=== PATIENT | male | born 1990 | race African-American/Black ===

== ENCOUNTER 2020-07-21 15:58 | Emergency (ER) | payer OTHER, SELFPAY ==
[2020-07-21 16:40] VITALS: BP 139/78; PULSE 78; RESP 18; TEMP 36.8; O2SAT 98; BMI 20.3
[2020-07-21] MEDS: Fluorescein Sodium STRIP 1 STRIP EYE-BOTH (17:27)
[2020-07-21] MEDS: Tetracaine HCl/PF 0.5% Oph Sol 4 ML DROPS 1 DROP EYE-BOTH (17:27)
[2020-07-21 18:33] VITALS: BP 125/84; PULSE 69; RESP 16; TEMP 36.4; O2SAT 98
--- NOTE | 2020-07-21 18:40 | ED.EYEPROB ---
HPI - Eye Problem General Chief complaint: Eye Problems Stated complaint: eye swelling Time Seen by Provider: 07/21/20 17:11 Source: patient Mode of arrival: ambulatory Limitations: no limitations History of Present Illness HPI Narrative: left eye irritation, pain x4 days. History of corneal abrasion and feels similar. Wears contacts MD chief complaint: eye pain and eye redness Onset (ago): day(s) Onset description: gradual Duration: constant Location: left eye Eye Symptoms: redness and pain Mechanism: none Associated symptoms: none Treatments Prior to Arrival: none Related Data Previous Rx's Medication Instructions Recorded erythromycin 1 applic OPHTHALMIC-LEFT QID 7 07/21/20 Days g Allergies Allergy/AdvReac Type Severity Reaction Status Date / Time No Known Allergies Allergy Unverified 06/19/20 19:12 [No Known Allergies*] Review of Systems Review of Systems: Yes all other systems are reviewed and are negative Constitutional: Constitutional: Reports no additional constitutional complaints, Denies body ache(s), Denies chills, Denies fever(s), Denies headache(s) and Denies weakness Eyes: Eyes: Reports no additional eye complaints, Denies change in vision, Reports irritation and Reports eye pain ENT: Reports system reviewed and no additional complaints, except as documented, Denies dizziness, Denies headache(s), Denies nasal congestion, Denies nasal discharge and Denies neck pain Cardiovascular: Cardiovascular: Reports no additional cardiovascular complaints, Denies chest pain, Denies leg edema and Denies dyspnea Respiratory: Respiratory: Reports no additional respiratory complaints, Denies cough and Denies dyspnea Gastrointestinal: Gastrointestinal: Reports no additional gastrointestinal complaints, Denies abdominal pain, Denies diarrhea, Denies nausea and Denies vomiting Genitourinary: Genitourinary: Denies urinary incontinence Musculoskeletal: Musculoskeletal: Reports no additional musculoskeletal complaints, Denies back pain, Denies arthralgias, Denies joint swelling, Denies neck pain, Denies numbness and Denies tingling Integumentary/Breasts: Skin/Breast: Reports system reviewed and no additional complaints, except as docu and Denies rash Neurologic: Reports system reviewed and no additional complaints, except as documented, Denies Abnormal speech present, Denies dizziness, Denies headache(s), Denies numbness, Denies tingling and Denies weakness [facility] Past Medical History Attestation statement: The following information was validated with the patient. Source: obtained from family and nursing notes reviewed Medical History No known health problems Social History Social History Advance Directives: No Advance Directives Information Provided: No Physical Exam Vital Signs: Vital Signs: Vital Signs Temp Pulse Resp BP Pulse Ox 07/21/20 18:33 97.5 F 69 16 125/84 98 07/21/20 16:40 98.2 F 78 18 139/78 98 Body Mass Index 20.3 Const: General: cooperative, healthy appearing, comfortable and no acute distress Orientation/consciousness: patient oriented x3 Limitations: no limitations HENMT: Head: Yes normal to inspection Ears: hearing grossly normal bilaterally General nose exam: Normal external nose present Face and sinus: Yes normal facial exam Mouth: Normal oral and palatal mucosa present Throat: Yes posterior oropharynx normal Eyes: General: appearance normal, both eyes and all related structures Visual Myers: normal visual myers by confrontation Alignment and Position: alignment normal Periorbital: periorbital findings normal Eyelids: Yes eyelids normal Conjunctivae: conjunctival abnormal ( injection) left Corneas: fluorescein used ( abrasion noted at the 02:00 o'clock souleymane over the cornea is small/circular) Pupils: Equal, round and reactive pupils present EOM: EOMs intact bilaterally Direct Ophthalmoscopy: normal light reflex and no photophobia Neck: Neck: Yes normal visual inspection Chest: Chest palpation & inspection: normal inspection of the chest Resp: Effort & Inspection: normal respiratory effort Auscultation: clear to auscultation bilaterally Cardio: Rate: regular rate Rhythm: regular rhythm Peripheral pulses: Peripheral pulses 2+ throughout GI: Inspection: Yes normal to inspection Palpation (GI): Soft to palpation and nontender Auscultation: normal bowel sounds Back/Spine/Pelvis: Thoracic/Lumbar Spine: thoracic and lumbar spine normal to inspection Skin: General skin exam: no rashes or lesions noted Neuro: General: patient oriented x3, no focal motor deficits and normal sensation to monofilament Cranial nerves: Yes Equal, round and reactive pupils present Cognition (Neuro): normal cognition Speech: No Abnormal speech present Gait exam (Neuro): Normal gait present Motor exam (neuro): 5/5 motor strength present throughout Extrem: General: Yes normal to inspection Course Course Course Narrative: exam consistent with corneal abrasion. Reviewed worrisome signs and symptoms of when to return to the emergency department. Comfortable discharge home. Discharge Plan Discharge Clinical Impression: Corneal abrasion Patient Disposition: Home, Self-Care Instructions: Corneal Abrasion (ED) Additional Instructions: cool compresses to the eye no contacts for at least 7 days call ophthalmology for a follow-up appointment as discussed Prescriptions: New erythromycin 5 mg/gram (0.5 %) ointment 1 applic ophthalmic-Left QID 7 Days RF: 0 Referrals: Kulwinder Rose [Physician] - 2 days Interventions: ED Discharge Assessment Last Done: 07/21/20 18:37 Discharge Date/Time: 07/21/20 18:38
== END 2020-07-21 18:38 | disposition home or self-care (01) ==
PROVIDERS: Emergency Provider Emergency Medicine
DX: S05.02XA Injury of conjunctiva and corneal abrasion without foreign body, left eye, initial encounter (principal); H57.12 Ocular pain, left eye; X58.XXXA Exposure to other specified factors, initial encounter; Y93.9 Activity, unspecified; Y92.9 Unspecified place or not applicable; Y99.9 Unspecified external cause status
CPT/HCPCS: 99283

== ENCOUNTER 2020-09-30 10:01 | Emergency (ER) | payer OTHER, SELFPAY ==
--- NOTE | 2020-09-30 | ECG_ITS ---
Test Reason : CHEST PAIN Blood Pressure : / mmHG Vent. Rate : 075 BPM Atrial Rate : 075 BPM P-R Int : 112 ms QRS Dur : 076 ms QT Int : 356 ms P-R-T Axes : 026 083 031 degrees QTc Int : 397 ms Normal sinus rhythm Normal ECG When compared with ECG of 29-NOV-2019 09:03, No significant change was found Referred By: Generic ED Physician Electronically Signed By:ANJEL EMERY
--- NOTE | 2020-09-30 | XR_ITS ---
EXAMINATION: XR CHEST CLINICAL INFORMATION: Chest pain. COMPARISON: None TECHNIQUE: 2 views of the chest were obtained. FINDINGS: No significant abnormality is noted involving the heart, lungs, mediastinum, bony thorax or soft tissues. XR/XR chest 2V IMPRESSION: No acute cardiopulmonary process.
[2020-09-30 10:23] VITALS: BP 145/81; PULSE 90; RESP 16; TEMP 37.2; O2SAT 98; BMI 21.1
[2020-09-30 12:03] LABS: MANUAL DIFF FLAG NO
[2020-09-30 12:05] LABS: Basophils Percent Auto 0.2 % (0-2); Eosinophils Absolute Auto 0.2 X10*3/uL (0.0-0.4); Eosinophils Percent Auto 1.8 % (0-4); Hematocrit 50.8 % (42-52); Hemoglobin 16.6 g/dl (14.0-18.0); Imm Gran Abs Auto 0.02 X10*3/uL (0.00-0.03); Imm Gran Pct Auto 0.2 % (0.0-0.4); Lymphocytes Absolute Auto 1.6 X10*3/uL (1.2-4.9); Lymphocytes Percent Auto 17.4 % (20-40); Mean Corpuscular HGB Conc 32.7 g/dl (31.0-36.0); Mean Corpuscular Hemoglobin 32.8 pg (27.0-33.0); Mean Corpuscular Volume 100.4 fL (80-98); Monocytes Absolute Auto 0.8 X10*3/uL (0.1-1.2); Neutrophils Absolute Auto 6.5 X10*3/uL (2.0-8.3); Neutrophils Percent Auto 71.4 % (45-73); Platelet Count 224 X10*3/uL (160-400); Red Blood Count 5.06 X10*6/uL (4.60-5.80); Red Cell Distribution Width 11.9 % (11.0-16.0); White Blood Count 9.1 X10*3/uL (4.8-10.8)
[2020-09-30 12:34] LABS: Anion Gap 10 (12-20); Blood Urea Nitrogen 14 mg/dL (9-16); Calcium 9.6 mg/dL (8.4-10.2); Carbon Dioxide 28 mmol/L (22-29); Chloride 105 mmol/L (96-108); Creatinine Clr Calc Pharmacy 126.4; Estimated Glomerular Filt Rate > 60; Glucose Random 82 mg/dL (60-115); Potassium 4.4 mmol/l (3.3-5.1); Sodium 139 mmol/L (135-145)
[2020-09-30 12:43] LABS: Troponin-I High Sensitivity < 3.5 ng/L (<3.5-35.0)
--- NOTE | 2020-09-30 17:36 | ED_ITS ---
HPI - Chest Pain General Chief Complaint: Chest Pain Stated Complaint: chest pain Time Seen by Provider: 09/30/20 17:36 History of Present Illness HPI narrative: Patient complains of symptoms which started 8 hours ago when he was driving to work he felt tingling in both arms he felt palpitations he felt slight shortness of breath he felt a heavy feeling in his chest but never had chest pain, the symptoms resolve but they have been coming back intermittently They are not related to exertion there is no nausea no vomiting no diaphoresis At this moment in time he is asymptomatic Related Data Previous Rx's Medication Instructions Recorded erythromycin 1 applic OPHTHALMIC-LEFT QID 7 07/21/20 Days g lorazepam [Ativan] 1 mg PO TID PRN #10 tab 09/30/20 Allergies Allergy/AdvReac Type Severity Reaction Status Date / Time No Known Allergies Allergy Unverified 06/19/20 19:12 [No Known Allergies*] Review of Systems Review of Systems: Positive for palpitations, feeling of chest heaviness, tingling in fingertips, feeling anxious negatives are no fever no chills no dizziness no cough no shortness of breath now no chest pain now, no abdominal pain no nausea no vomiting no sweating, symptoms are not related to exertion, no calf pain or leg swelling, no rash, no dizziness no confusion [facility] Past Medical History Attestation statement: The following information was validated with the patient. [facility] Narrative: Patient has had prior episodes of hyperventilation and anxiety attacks similar to today, denies drugs or alk Medical History (Updated 09/30/20 @ 17:49 by BASIA Chatterjee) Anxiety Social History Social History Advance Directives: No Advance Directives Information Provided: Yes Physical Exam Vital Signs: Vital Signs: Last Vital Signs Temp 98.9 F 09/30/20 10:23 Pulse 68 09/30/20 17:55 Resp 18 09/30/20 17:55 BP 122/80 09/30/20 17:55 Pulse Ox 98 09/30/20 17:55 Body Mass Index 21.1 General appearance no acute distress, comfortable relaxed and cooperative The head is normocephalic atraumatic The neck is supple The chest is clear to auscultation bilaterally, no chest wall tenderness, full symmetric equal breath sounds The heart rate and rhythm regular no murmur The abdomen is soft nontender Extremities full range of motion x4 without calf swelling or leg swelling or calf tenderness Neuro no focal deficit, patient is interacting appropriately, balance is normal cranial nerves 2-12 intact as tested and cerebellar is normal Course Course Course Narrative: EKG was normal a troponin for the brief episode of chest heaviness which happened 7 or 8 hours ago when symptoms 1st started was normal, other lab work up was nondiagnostic, chest x-ray was normal and at this time the patient is asymptomatic Discussion with patient about this likely being a an anxiety attack and he was given a prescription for Ativan and discharged MDM - Chest Pain Lab Data Attestation: I reviewed the patient's lab results. Result diagrams: 09/30/20 11:54 09/30/20 11:54 Labs: Lab Results 09/30/20 09/30/20 09/30/20 Range/Units 11:54 11:54 11:54 WBC 9.1 (4.8-10.8) X10*3/uL RBC 5.06 (4.60-5.80) X10*6/uL Hgb 16.6 (14.0-18.0) g/dl Hct 50.8 (42-52) % MCV 100.4 H (80-98) fL MCH 32.8 (27.0-33.0) pg MCHC 32.7 (31.0-36.0) g/dl RDW 11.9 (11.0-16.0) % Plt Count 224 (160-400) X10*3/uL MPV 9.0 L (9.4-12.4) fL Immature Gran % (Auto) 0.2 (0.0-0.4) % Neut % (Auto) 71.4 (45-73) % Lymph % (Auto) 17.4 L (20-40) % [place] % (Auto) 9.0 (2-11) % Eos % (Auto) 1.8 (0-4) % Baso % (Auto) 0.2 (0-2) % Lymph # (Auto) 1.6 (1.2-4.9) X10*3/uL [place] # (Auto) 0.8 (0.1-1.2) X10*3/uL Eos # (Auto) 0.2 (0.0-0.4) X10*3/uL Baso # (Auto) 0.0 (0.0-0.2) X10*3/uL Abs Immat Gran (auto) 0.02 (0.00-0.03) X10*3/uL Absolute Neuts (auto) 6.5 (2.0-8.3) X10*3/uL Absolute Nucleated RBC 0.000 (0.0-0.012) X10*3/uL Nucleated RBC % (auto) 0.0 (0.0-0.2) /100WBC Hold Blue Top SEE NOTE Sodium 139 (135-145) mmol/L Potassium 4.4 (3.3-5.1) mmol/l Chloride 105 (96-108) mmol/L Carbon Dioxide 28 (22-29) mmol/L Anion Gap 10 L (12-20) BUN 14 (9-16) mg/dL Creatinine 0.74 (0.5-1.4) mg/dL Estim Creat Clear Calc 126.4 Estimated GFR > 60 Random Glucose 82 (60-115) mg/dL Calcium 9.6 (8.4-10.2) mg/dL Troponin I High Sens (<3.5-35.0) ng/L 09/30/20 Range/Units 11:54 WBC (4.8-10.8) X10*3/uL RBC (4.60-5.80) X10*6/uL Hgb (14.0-18.0) g/dl Hct (42-52) % MCV (80-98) fL MCH (27.0-33.0) pg MCHC (31.0-36.0) g/dl RDW (11.0-16.0) % Plt Count (160-400) X10*3/uL MPV (9.4-12.4) fL Immature Gran % (Auto) (0.0-0.4) % Neut % (Auto) (45-73) % Lymph % (Auto) (20-40) % [place] % (Auto) (2-11) % Eos % (Auto) (0-4) % Baso % (Auto) (0-2) % Lymph # (Auto) (1.2-4.9) X10*3/uL [place] # (Auto) (0.1-1.2) X10*3/uL Eos # (Auto) (0.0-0.4) X10*3/uL Baso # (Auto) (0.0-0.2) X10*3/uL Abs Immat Gran (auto) (0.00-0.03) X10*3/uL Absolute Neuts (auto) (2.0-8.3) X10*3/uL Absolute Nucleated RBC (0.0-0.012) X10*3/uL Nucleated RBC % (auto) (0.0-0.2) /100WBC Hold Blue Top Sodium (135-145) mmol/L Potassium (3.3-5.1) mmol/l Chloride (96-108) mmol/L Carbon Dioxide (22-29) mmol/L Anion Gap (12-20) BUN (9-16) mg/dL Creatinine (0.5-1.4) mg/dL Estim Creat Clear Calc Estimated GFR Random Glucose (60-115) mg/dL Calcium (8.4-10.2) mg/dL Troponin I High Sens < 3.5 (<3.5-35.0) ng/L Discharge Plan Discharge Clinical Impression: Anxiety Patient Disposition: Home, Self-Care Additional Instructions: Our testing which included EKG, blood test for the heart, electrolytes blood count and a chest x-ray did not reveal any dangerous or emergent condition Your vital signs and physical exam did not reveal any dangerous condition your symptoms are most consistent with anxiety so we are writing for Ativan which often helps if having an acute anxiety attack Follow with primary doctor Return return to ER any time any worse condition or any concerns Prescriptions: New lorazepam [Ativan] 1 mg tablet 1 mg PO TID PRN (Reason: anxiety) Qty: 10 RF: 0 No Action erythromycin 5 mg/gram (0.5 %) ointment 1 applic ophthalmic-Left QID 7 Days RF: 0 Stand Alone Forms: Work/School Release Discharge Date/Time: 09/30/20 18:14
[2020-09-30 17:55] VITALS: BP 122/80; PULSE 68; RESP 18; O2SAT 98
--- NOTE | 2020-09-30 17:55 | PC.NURSE ---
Patient brought in from waiting room. Reports minimal pain of 3/10, does report some anxiety. Updated on normal EKG and labs. Bill PA at bedside to evaluate. Respirations regular and even. Skin PWD. Awaiting further orders.
== END 2020-09-30 18:14 | disposition home or self-care (01) ==
PROVIDERS: Emergency Provider Emergency Medicine
DX: R07.9 Chest pain, unspecified (principal); F41.1 Generalized anxiety disorder; F43.0 Acute stress reaction; Z79.899 Other long term (current) drug therapy
CPT/HCPCS: 36415; 71046; 80048; 84484; 85025; 93005; 99283

== ENCOUNTER 2021-03-25 07:14 | Inpatient (IN) | payer OTHER, SELFPAY ==
[2021-03-25 07:27] VITALS: BP 128/86; BP 129/85; PULSE 86; PULSE 90; RESP 16; TEMP 37.3; O2SAT 98; BMI 23.3
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
[2021-03-25 08:38] LABS: MANUAL DIFF FLAG NO
[2021-03-25 08:40] LABS: Basophils Percent Auto 0.1 % (0-2); Eosinophils Absolute Auto 0.1 X10*3/uL (0.0-0.4); Eosinophils Percent Auto 1.2 % (0-4); Hematocrit 45.2 % (42-52); Hemoglobin 15.5 g/dl (14.0-18.0); Imm Gran Abs Auto 0.02 X10*3/uL (0.00-0.03); Imm Gran Pct Auto 0.2 % (0.0-0.4); Lymphocytes Absolute Auto 1.5 X10*3/uL (1.2-4.9); Mean Corpuscular HGB Conc 34.3 g/dl (31.0-36.0); Mean Corpuscular Hemoglobin 33.3 pg (27.0-33.0); Mean Corpuscular Volume 97.2 fL (80-98); Mean Platelet Volume 8.9 fL (9.4-12.4); Monocytes Percent Auto 10.8 % (2-11); Neutrophils Absolute Auto 6.4 X10*3/uL (2.0-8.3); Neutrophils Percent Auto 70.7 % (45-73); Platelet Count 203 X10*3/uL (160-400); Red Blood Count 4.65 X10*6/uL (4.60-5.80); Red Cell Distribution Width 11.6 % (11.0-16.0)
[2021-03-25 09:05] LABS: Ethanol < 10 mg/dL
[2021-03-25 09:08] LABS: Acetaminophen LAB < 1 mcg/mL (<30); Alanine Aminotransferase 44 U/L (0-40); Albumin Level 4.5 g/dL (3.5-5.0); Alkaline Phosphatase 106 U/L (39-117); Anion Gap 14 (12-20); Aspartate Amino Transferase 30 U/L (5-37); Bilirubin Total 0.7 mg/dL (0.0-1.0); Blood Urea Nitrogen 11 mg/dL (9-16); Calcium 9.5 mg/dL (8.4-10.2); Carbon Dioxide 23 mmol/L (22-29); Chloride 104 mmol/L (96-108); Creatinine Clr Calc Pharmacy 139.9; Estimated Glomerular Filt Rate > 60; Glucose Random 96 mg/dL (60-115); Potassium 3.7 mmol/L (3.3-5.1); Salicylate < 5.0 mg/dL (15-30); Sodium 137 mmol/L (135-145)
--- NOTE | 2021-03-25 09:22 | PC.NURSE ---
pt ambulated over to pod w steady gait, calm and cooperative w this rn. blood labs obtained and sent. awaiting ua spec. pt aware. wctm.
[2021-03-25 10:36] VITALS: BP 129/82; PULSE 76; RESP 16; TEMP 36.4; O2SAT 98
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
[2021-03-25 19:40] LABS: Amphetamine Screen Urine Not Detected (Not Detect); Barbiturates, Urine Not Detected (Not Detect); Benzodiazepines Screen Urine Not Detected (Not Detect); Cannabinoid Screen Urine Not Detected (Not Detect); Cocaine Screen Urine Not Detected (Not Detect); Opiate Screen Urine Not Detected (Not Detect); Phencyclidine Screen Urine Not Detected (Not Detect)
[2021-03-25 20:00] VITALS: BP 127/80; PULSE 60; TEMP 36.5; O2SAT 96
[2021-03-26 06:00] VITALS: BP 119/78; PULSE 68; RESP 16; TEMP 36.7; O2SAT 98
[2021-03-26 07:00] VITALS: BMI 24.9
[2021-03-26 08:24] LABS: Cholesterol 218 mg/dL; HDL Cholesterol 47 mg/dL; LDL Cholesterol Calculated 137 mg/dl; Triglycerides 170 mg/dL
[2021-03-26 08:34] LABS: Estimated Average Glucose 85 mg/dL; Hemoglobin A1c % 4.6 %
[2021-03-26 08:44] LABS: Thyroid Stimulating Hormone 1.55 uIU/mL (0.32-4.0)
[2021-03-26 09:58] LABS: Vitamin B12 255 pg/mL (200-900)
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
[2021-03-26 16:48] VITALS: BP 129/76; PULSE 73; RESP 16; TEMP 36.8; O2SAT 97
[2021-03-27 08:00] VITALS: BP 111/66; PULSE 77; RESP 16; TEMP 36.6; O2SAT 97
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
--- NOTE | 2021-03-27 11:06 | PC.NURSE ---
Pt is awake and alert, ready for discharge. Pt denies SI/HI, reports he will be returning home to his GF. Pt is not currently prescribed any medications. VSS, ate well.
== END 2021-03-27 11:05 | disposition home or self-care (01) | DRG 755 ==
LOC: HO.ED 09:22 → HO.PADLT16 13:09
PROVIDERS: Social Worker; Admitting Provider Psychiatry & Neurology Psychiatry; Emergency Provider Emergency Medicine; PCP Internal Medicine; Visit Provider Psychiatry & Neurology Psychiatry
DX: F43.25 Adjustment disorder with mixed disturbance of emotions and conduct (principal); R45.851 Suicidal ideations; F41.9 Anxiety disorder, unspecified; F17.210 Nicotine dependence, cigarettes, uncomplicated; Z71.6 Tobacco abuse counseling
CPT/HCPCS: 36415; 80053; 80061; 80143; 80179; 80307; 82077; 82607; 82746; 83036; 84443; 85025; 99285

== ENCOUNTER 2021-05-26 09:03 | Outpatient (REF) | payer OTHER, SELFPAY ==
[2021-05-26 09:41] LABS: MANUAL DIFF FLAG NO
[2021-05-26 09:50] LABS: Basophils Percent Auto 0.3 % (0-2); Eosinophils Absolute Auto 0.2 X10*3/uL (0.0-0.4); Eosinophils Percent Auto 2.2 % (0-4); Hematocrit 46.5 % (42-52); Hemoglobin 15.5 g/dl (14.0-18.0); Imm Gran Abs Auto 0.03 X10*3/uL (0.00-0.03); Imm Gran Pct Auto 0.4 % (0.0-0.4); Lymphocytes Absolute Auto 1.7 X10*3/uL (1.2-4.9); Lymphocytes Percent Auto 22.3 % (20-40); Mean Corpuscular HGB Conc 33.3 g/dl (31.0-36.0); Mean Corpuscular Hemoglobin 32.9 pg (27.0-33.0); Mean Corpuscular Volume 98.7 fL (80-98); Mean Platelet Volume 9.1 fL (9.4-12.4); Monocytes Absolute Auto 0.8 X10*3/uL (0.1-1.2); Monocytes Percent Auto 11.1 % (2-11); Neutrophils Absolute Auto 4.8 X10*3/uL (2.0-8.3); Neutrophils Percent Auto 63.7 % (45-73); Platelet Count 210 X10*3/uL (160-400); Red Blood Count 4.71 X10*6/uL (4.60-5.80); Red Cell Distribution Width 11.7 % (11.0-16.0); White Blood Count 7.6 X10*3/uL (4.8-10.8)
[2021-05-26 10:25] LABS: Alanine Aminotransferase 35 U/L (0-40); Albumin Level 4.6 g/dL (3.5-5.0); Alkaline Phosphatase 98 U/L (39-117); Anion Gap 12 (12-20); Aspartate Amino Transferase 25 U/L (5-37); Bilirubin Total 0.7 mg/dL (0.0-1.0); Blood Urea Nitrogen 10 mg/dL (9-16); Calcium 9.7 mg/dL (8.4-10.2); Carbon Dioxide 26 mmol/L (22-29); Chloride 107 mmol/L (96-108); Cholesterol 199 mg/dL; Estimated Glomerular Filt Rate > 60; Glucose Fasting 97 mg/dL (60-99); HDL Cholesterol 41 mg/dL; LDL Cholesterol Calculated 136 mg/dl; Potassium 4.4 mmol/L (3.3-5.1); Sodium 141 mmol/L (135-145); Triglycerides 112 mg/dL
[2021-05-26 10:49] LABS: Thyroid Stimulating Hormone 2.48 uIU/mL (0.32-4.0)
[2021-05-27 20:21] LABS: Prolactin 5.9 ng/mL (2.0-18.0)
[2021-05-27 22:36] LABS: Thyroglobulin Antibodies <1 IU/mL (< or = 1); Thyroid Peroxidase Antibodies <1 IU/mL (<9)
== END 2021-05-26 09:04 | disposition home or self-care (01) ==
LOC: HO.LAB 09:03
PROVIDERS: PCP Internal Medicine; Visit Provider Internal Medicine
DX: E23.6 Other disorders of pituitary gland (principal); R79.89 Other specified abnormal findings of blood chemistry; F10.20 Alcohol dependence, uncomplicated; Z82.49 Family history of ischemic heart disease and other diseases of the circulatory system
CPT/HCPCS: 36415; 80053; 80061; 84146; 84443; 85025; 86376; 86800

== ENCOUNTER 2021-05-28 08:56 | Outpatient (REF) | payer OTHER, SELFPAY ==
--- NOTE | ~2021-05-28 | MR_ITS ---
EXAMINATION: MR BRAIN WITHOUT AND WITH CONTRAST CLINICAL INFORMATION: Headaches. Vertigo. COMPARISON: None. TECHNIQUE: Multiplanar, multisequential imaging was obtained without and with intravenous administration of contrast. Intravenous contrast: Gadavist 4 mL. FINDINGS: There is a homogeneous lesion with decreased differential enhancement within the pituitary gland measuring 1.3 cm TV by 1.4 cm CC by 1.3 cm AP. There is mild suprasellar extension of the lesion without compression of the optic chiasm. The infundibulum is slightly deviated to the right of midline. The cavernous sinuses opacify symmetrically. The sella turcica is chronically remodeled and expanded by the mass. No diffusion abnormalities are identified to suggest an acute or subacute infarct. No evidence of hydrocephalus. Mild asymmetric enlargement of the left lateral ventricle is suspected to be developmental in etiology. No mass effect or midline shift is seen. No brain parenchymal signal abnormalities are seen. No extra-axial fluid collections are noted. The brainstem and cerebellum are normal. On postcontrast imaging, there is no abnormal parenchymal or leptomeningeal enhancement. The craniovertebral junction, marrow signal, and remaining midline structures are normal. The mastoid air cells and are well aerated. There is mild to moderate ethmoid sinus mucosal thickening. 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 No compression of the optic pathway structures. No lateral extension of tumor into the cavernous sinuses. No acute intracranial process.
== END 2021-05-28 08:57 | disposition home or self-care (01) ==
LOC: HO.MRI 08:56
PROVIDERS: PCP Internal Medicine; Visit Provider Internal Medicine
DX: E23.6 Other disorders of pituitary gland (principal)
CPT/HCPCS: 70553; A9585

== ENCOUNTER → 2021-06-01 13:56 | Outpatient (REF) | payer OTHER, SELFPAY | LOC: HO.SL 13:56 | PROVIDERS: PCP Internal Medicine; Visit Provider Internal Medicine | DX: R40.0 Somnolence (principal) | CPT/HCPCS: 95806 ==

== ENCOUNTER 2021-11-27 13:32 | Emergency (ER) | payer OTHER, SELFPAY ==
[2021-11-27 13:42] VITALS: BP 116/73; PULSE 92; RESP 18; TEMP 36.7; O2SAT 98; BMI 26.4
--- NOTE | 2021-11-27 13:52 | ED.GENADULT ---
HPI - General Adult General Chief complaint: General Medical Stated complaint: headache nausea Time Seen by Provider: 11/27/21 13:47 Source: patient Mode of arrival: ambulatory Limitations: no limitations History of Present Illness HPI narrative: 30 y/o male with history of pituitary macroadenoma, alcohol abuse, insomnia, depression, AKIN who presents to the ER with acute onset of nausea, vomiting and watery diarrhea that started today. He reports last night he started having some left sided flank pain but was able to sleep okay. This morning the pain persisted and he started having multiple episodes of waterys, non-bloody diarrhea as well as a few episodes of emesis. He denies fevers but has had chills. No urinary symptoms. No back pain. No hx kidney stones. He reports his 10 yo daughter was seen here yesterday for vomiting as well. MD complaint: N/V/D and left sided flank pain Onset (ago): day(s) (1) Location: abdomen and left Radiation: non-radiation Severity: moderate Severity scale (1-10): 6 Quality: stabbing and aching Pain Consistency: intermittent Relieving factors: none Exacerbating factors: none Associated symptoms: fever/chills, malaise and nausea/vomiting Treatments prior to arrival: none Related Data Previous Rx's Medication Instructions Recorded melatonin 1 mg tablet 1 mg PO BEDTIME PRN #30 tab 09/24/21 Allergies Allergy/AdvReac Type Severity Reaction Status Date / Time No Known Allergies Allergy Verified 09/24/21 14:33 [No Known Allergies*] Review of Systems Review of Systems: Constitutional: No Fever, No Chills ENT/Mouth: No sore throat, No Rhinorrhea, No Swallowing Difficulty Cardiovascular: No Chest Pain, No SOB Respiratory: No Cough, No Sputum, No Wheezing, No dyspnea Gastrointestinal: + Nausea, +Vomiting, + Diarrhea, + abdominal Pain, No Hematochezia, No Melena Genitourinary: No Dysuria, No Urinary Frequency, No Hematuria Musculoskeletal: No joint pain, No Myalgias Skin: No Skin Lesions, No rash Neuro: No Weakness, No Numbness, No Dizziness, No Headache Psych: No Anxiety/Panic, No Depression Heme/Lymph: No Bruising, No Lymphadenopathy Endocrine: No Polyuria, No Polydipsia PMFSH Past Medical History Medical History Abnormal TSH Alcoholism Anxiety Anxiety Daytime somnolence Family history of hypertension 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 Father Diabetes Hypertension Neuropathy Social History Social History Household Members: Significant Other Household Members Other:: SO and her two children Housing: Apartment Do you presently have visiting nurse or other home services: No Alcohol intake: current Alcohol intake frequency: 3 or more drinks per day Alcohol type: beer Patient Tobacco Use Status: Current everyday Tobacco user Tobacco use type: Cigarette Cigarette Packs Per Day: 1 Years Smoked: 14 e-Cigarette/Vaping Use: Never Used Second Hand Smoke Exposure: Yes Advance Directives: No Advance Directives Information Provided: No service: No Current occupational status: unemployed Sexual orientation: Straight/Heterosexual Physical Exam ED Vital Signs: Vital Signs - 24 hr 11/27/21 13:42 Temperature 98.0 F Pulse Rate 92 Respiratory Rate 18 Blood Pressure 116/73 Pulse Oximetry 98 BMI result Body Mass Index 26.4 Appearance: Alert. Oriented X3. No acute distress. Appears well Eyes: Pupils equal, round and reactive to light. ENT: Pharynx normal. Neck: Normal inspection. Neck supple. CVS: Normal heart rate and rhythm. Pulses normal. Respiratory: No respiratory distress. Breath sounds normal. Abdomen: Soft and nontender. +BS x4. No CVA tenderness. Skin: Skin warm and dry. Normal skin color. Normal skin turgor. No rashes. Extremities: No lower extremity edema. Neuro: Oriented X 3. No motor deficit. No sensory deficit. Course Course Course Narrative: 30-year-old female presenting with acute onset of left-sided flank pain x1 day as well as nausea, vomiting, watery diarrhea that started today. His daughter is home with similar symptoms. Suspect viral etiology. Doubt acute kidney stone given lack of CVA tenderness. Abdominal exam is benign, nontender. Will plan to check COVID swab, flu swab, basic lab workup and treat with IV fluids and Zofran. Will reassess. Reevaluation(s) Reevaluation #1: Labs are unremarkable. COVID and flu are negative. No episodes of vomiting or diarrhea while observed in the emergency room. He feels better after IV fluids and Zofran. His symptoms are most likely viral, he is stable for discharge home with supportive care. Stable for DC home. Work note provided per request. Medical Decision Making Lab Data Result diagrams: 11/27/21 14:02 11/27/21 14:02 Labs: Lab Results 11/27/21 11/27/21 11/27/21 Range/Units 13:45 14:02 14:02 WBC 8.1 (4.8-10.8) X10*3/uL RBC 4.90 (4.60-5.80) X10*6/uL Hgb 15.9 (14.0-18.0) g/dl Hct 46.7 (42.0-52.0) % MCV 95.3 (80.0-98.0) fL MCH 32.4 (27.0-33.0) pg MCHC 34.0 (31.0-36.0) g/dl RDW 11.6 (11.0-16.0) % Plt Count 190 (160-400) X10*3/uL MPV 8.8 L (9.4-12.4) fL Immature Gran % (Auto) 0.4 (0.0-0.4) % Neut % (Auto) 69.0 (45-73) % Lymph % (Auto) 14.8 L (20-40) % [place] % (Auto) 14.0 H (2-11) % Eos % (Auto) 1.7 (0-4) % Baso % (Auto) 0.1 (0-2) % Lymph # (Auto) 1.2 (1.2-4.9) X10*3/uL [place] # (Auto) 1.1 (0.1-1.2) X10*3/uL Eos # (Auto) 0.1 (0.0-0.4) X10*3/uL Baso # (Auto) 0.0 (0.0-0.2) X10*3/uL Abs Immat Gran (auto) 0.03 (0.00-0.03) X10*3/uL Absolute Neuts (auto) 5.6 (2.0-8.3) x10*3/uL Absolute Nucleated RBC 0.000 (0.0-0.012) X10*3/uL Nucleated RBC % (auto) 0.0 (0.0-0.2) /100WBC Sodium 137 (135-145) mmol/L Potassium 3.7 (3.3-5.1) mmol/L Chloride 106 (96-108) mmol/L Carbon Dioxide 23 (22-29) mmol/L Anion Gap 12 (12-20) BUN 13 (9-16) mg/dL Creatinine 0.79 (0.5-1.4) mg/dL Estim Creat Clear Calc 113.4 Estimated GFR > 60 Random Glucose 95 (60-115) mg/dL Calcium 9.1 D (8.4-10.2) mg/dL Magnesium 2.0 (1.6-2.6) mg/dL Total Bilirubin 0.5 (0.0-1.0) mg/dL Direct Bilirubin 0.2 (0.0-0.5) mg/dL AST 28 (5-37) U/L ALT 47 H (0-40) U/L Alkaline Phosphatase 128 H D (39-117) U/L Total Protein 7.1 (6.5-8.0) g/dL Albumin 4.5 (3.5-5.0) g/dL Lipase 24 (8-78) U/L COVID-19 (DOMINIQUE) Negative (Negative) COVID-19 Clin Com See Note Influenza Type A (GURDEEP) (Negative) Influenza Type B (GURDEEP) (Negative) Influenza A & B Note 11/27/21 Range/Units 14:03 WBC (4.8-10.8) X10*3/uL RBC (4.60-5.80) X10*6/uL Hgb (14.0-18.0) g/dl Hct (42.0-52.0) % MCV (80.0-98.0) fL MCH (27.0-33.0) pg MCHC (31.0-36.0) g/dl RDW (11.0-16.0) % Plt Count (160-400) X10*3/uL MPV (9.4-12.4) fL Immature Gran % (Auto) (0.0-0.4) % Neut % (Auto) (45-73) % Lymph % (Auto) (20-40) % [place] % (Auto) (2-11) % Eos % (Auto) (0-4) % Baso % (Auto) (0-2) % Lymph # (Auto) (1.2-4.9) X10*3/uL [place] # (Auto) (0.1-1.2) X10*3/uL Eos # (Auto) (0.0-0.4) X10*3/uL Baso # (Auto) (0.0-0.2) X10*3/uL Abs Immat Gran (auto) (0.00-0.03) X10*3/uL Absolute Neuts (auto) (2.0-8.3) x10*3/uL Absolute Nucleated RBC (0.0-0.012) X10*3/uL Nucleated RBC % (auto) (0.0-0.2) /100WBC Sodium (135-145) mmol/L Potassium (3.3-5.1) mmol/L Chloride (96-108) mmol/L Carbon Dioxide (22-29) mmol/L Anion Gap (12-20) BUN (9-16) mg/dL Creatinine (0.5-1.4) mg/dL Estim Creat Clear Calc Estimated GFR Random Glucose (60-115) mg/dL Calcium (8.4-10.2) mg/dL Magnesium (1.6-2.6) mg/dL Total Bilirubin (0.0-1.0) mg/dL Direct Bilirubin (0.0-0.5) mg/dL AST (5-37) U/L ALT (0-40) U/L Alkaline Phosphatase (39-117) U/L Total Protein (6.5-8.0) g/dL Albumin (3.5-5.0) g/dL Lipase (8-78) U/L COVID-19 (DOMINIQUE) (Negative) COVID-19 Clin Com Influenza Type A (GURDEEP) Negative (Negative) Influenza Type B (GURDEEP) Negative (Negative) Influenza A & B Note See Note Critical Care Time Critical Care Time Critical Care Time: No Discharge Plan Discharge Clinical Impression: Gastroenteritis Patient Disposition: Home, Self-Care Instructions: Gastroenteritis (DC) Additional Instructions: Your lab workup today was unremarkable. You were negative for COVID-19 and influenza. Your symptoms are most likely due to a ?GI bug? also known as gastroenteritis. Treatment is supportive care, the rest to stay hydrated. Stick to a bland diet lower not feeling well. Recommend [id number] Pepto-Bismol or Imodium as needed for upset stomach and diarrhea. Do not go out in public while you are not feeling well. Follow-up with your doctor as needed. If you develop new or worsening symptoms call 911 or come back to the ER for further evaluation. Prescriptions: No Action melatonin 1 mg tablet 1 mg PO BEDTIME PRN (Reason: sleep) Qty: 30 0RF Stand Alone Forms: Work/School Release
[2021-11-27 14:08] LABS: COVID-19 Test Negative (Negative)
[2021-11-27] MEDS: ondansetron HCL 4 MG/2 ML VIAL IVPUSH (14:09)
[2021-11-27] MEDS: 0.9 % Sodium Chloride 1,000 ML 999 ML IVCONT (14:09)
[2021-11-27 14:16] LABS: MANUAL DIFF FLAG NO
[2021-11-27 14:18] LABS: Basophils Percent Auto 0.1 % (0-2); Eosinophils Absolute Auto 0.1 X10*3/uL (0.0-0.4); Eosinophils Percent Auto 1.7 % (0-4); Hematocrit 46.7 % (42.0-52.0); Hemoglobin 15.9 g/dl (14.0-18.0); Imm Gran Abs Auto 0.03 X10*3/uL (0.00-0.03); Imm Gran Pct Auto 0.4 % (0.0-0.4); Lymphocytes Absolute Auto 1.2 X10*3/uL (1.2-4.9); Lymphocytes Percent Auto 14.8 % (20-40); Mean Corpuscular Hemoglobin 32.4 pg (27.0-33.0); Mean Corpuscular Volume 95.3 fL (80.0-98.0); Mean Platelet Volume 8.8 fL (9.4-12.4); Monocytes Absolute Auto 1.1 X10*3/uL (0.1-1.2); Neutrophils Absolute Auto 5.6 x10*3/uL (2.0-8.3); Platelet Count 190 X10*3/uL (160-400); Red Cell Distribution Width 11.6 % (11.0-16.0); White Blood Count 8.1 X10*3/uL (4.8-10.8)
[2021-11-27 14:33] LABS: IDNOW Serial# 08D9AD1C; Influenza A Negative (Negative)
[2021-11-27 14:34] LABS: Alanine Aminotransferase 47 U/L (0-40); Albumin Level 4.5 g/dL (3.5-5.0); Alkaline Phosphatase 128 U/L (39-117); Anion Gap 12 (12-20); Aspartate Amino Transferase 28 U/L (5-37); Bilirubin Direct 0.2 mg/dL (0.0-0.5); Bilirubin Total 0.5 mg/dL (0.0-1.0); Blood Urea Nitrogen 13 mg/dL (9-16); Calcium 9.1 mg/dL (8.4-10.2); Carbon Dioxide 23 mmol/L (22-29); Chloride 106 mmol/L (96-108); Creatinine Clr Calc Pharmacy 113.4; Estimated Glomerular Filt Rate > 60; Glucose Random 95 mg/dL (60-115); Lipase 24 U/L (8-78); Potassium 3.7 mmol/L (3.3-5.1); Sodium 137 mmol/L (135-145); Total Protein 7.1 g/dL (6.5-8.0)
[2021-11-27 14:34] LABS: Influenza B2 Negative (Negative)
[2021-11-27 15:29] LABS: Appearance Urine CLEAR; Color Urine YELLOW; Glucose Urine UA NEG (NEG); Leukocyte Esterase Urine NEG (NEG); Nitrite Urine NEG (NEG); Specific Gravity - Urine >= 1.030 (1.005-1.025); UACC Culture Trigger NO; Urine Blood 1+ (NEG); Urine Ketones NEG (NEG); Urine Protein NEG (NEG-TRACE)
[2021-11-27 15:51] LABS: Mucus Urine TRACE /LPF; Squamous Epithelial Cell Urine TRACE /LPF; WBC Urine 0-2 /HPF (0-4)
== END 2021-11-27 15:53 | disposition home or self-care (01) ==
PROVIDERS: Physician Assistant; Emergency Provider Emergency Medicine; PCP Internal Medicine
DX: K52.9 Noninfective gastroenteritis and colitis, unspecified (principal); R51.9 Headache, unspecified; R11.2 Nausea with vomiting, unspecified; G47.33 Obstructive sleep apnea (adult) (pediatric); Z20.822 Contact with and (suspected) exposure to COVID-19; Z79.899 Other long term (current) drug therapy
CPT/HCPCS: 36415; 80048; 80076; 81001; 83690; 83735; 85025; 87502; 87635; 96361; 96374; 99283; 99284; J2405

== ENCOUNTER 2021-11-28 05:39 | Emergency (ER) | payer OTHER, SELFPAY ==
[2021-11-28 05:48] VITALS: BP 112/70; BP 123/80; PULSE 90; PULSE 95; RESP 16; O2SAT 96; O2SAT 97; BMI 26.4
--- NOTE | 2021-11-28 05:58 | ECG_ITS ---
Test Reason : CHEST PAIN Blood Pressure : / mmHG Vent. Rate : 086 BPM Atrial Rate : 086 BPM P-R Int : 146 ms QRS Dur : 076 ms QT Int : 344 ms P-R-T Axes : 053 072 025 degrees QTc Int : 411 ms Normal sinus rhythm Nonspecific T wave abnormality Borderline ECG When compared to the previous EKG of 30 sep 2020, non specific ST-T changes more prominent. Referred By: Ban Silver Electronically Signed By:ANJEL EMERY
--- NOTE | 2021-11-28 06:01 | ED_ITS ---
HPI - Chest Pain General Chief Complaint: Chest Pain Stated Complaint: difficulty breathing and chest pain Time Seen by Provider: 11/28/21 05:56 Source: patient Mode of arrival: ambulatory Limitations: no limitations History of Present Illness HPI narrative: Patient comes to emergency room complaining of chest pain. Patient states that yesterday after he was discharged, he went home, took a nap, then woke up with chest pain. Patient states it is a pressure-like sensation. Patient denies shortness of breath Related Data Previous Rx's Medication Instructions Recorded melatonin 1 mg tablet 1 mg PO BEDTIME PRN #30 tab 09/24/21 ibuprofen 600 mg tablet 600 mg PO Q6H PRN #14 tab 11/28/21 Allergies Allergy/AdvReac Type Severity Reaction Status Date / Time No Known Allergies Allergy Verified 09/24/21 14:33 [No Known Allergies*] Review of Systems Review of Systems: Constitutional : No Weight loss, No Fever, No Chills, No Night Sweats, No Fatigue, No Malaise ENT/Mouth : No Hearing loss, No Ear Pain, No Nasal Congestion, No Sinus Pain, No Hoarseness, No sore throat, No Rhinorrhea, No Swallowing Difficulty Eyes: No Eye Pain, No Swelling, No Redness, No Foreign Body, No Discharge, No Vision Changes Cardiovascular : Complaining of substernal Chest Pain, No SOB, No Dyspnea on Exertion, No Orthopnea, No Edema, No Palpitations Respiratory : No Cough, No Sputum, No Wheezing, No Smoke Exposure, No Dyspnea Gastrointestinal : No Nausea, No Vomiting, No Diarrhea, No Constipation, No abdominal Pain, No Hematochezia, No Melena Genitourinary : no irregular bleeding, No Dysuria, No Urinary Frequency, No Hematuria, No Urinary Incontinence, No Urgency, No Flank Pain, No Urinary Flow Changes, No Hesitancy Musculoskeletal : No joint pain, No Myalgias, No Joint Swelling Skin : No Skin Lesions, No rash Neuro : No Weakness, No Numbness, No Paresthesias, No Loss of Consciousness, No Dizziness, No Headache Psych : No Anxiety/Panic, No Depression, No SI/HI/AH/VH, No Social Issues, Heme/Lymph: No Bruising, No Bleeding,No Lymphadenopathy Endocrine : No Polyuria, No Polydipsia, No Temperature Intolerance [facility] Past Medical History Medical History Abnormal TSH Alcoholism Anxiety Anxiety Daytime somnolence Family history of hypertension 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 Father Diabetes Hypertension Neuropathy Social History Social History Household Members: Significant Other Household Members Other:: SO and her two children Housing: Apartment Do you presently have visiting nurse or other home services: No Alcohol intake: current Alcohol intake frequency: 3 or more drinks per day Alcohol type: beer Patient Tobacco Use Status: Current everyday Tobacco user Tobacco use type: Cigarette Cigarette Packs Per Day: 1 Years Smoked: 14 e-Cigarette/Vaping Use: Never Used Second Hand Smoke Exposure: Yes Advance Directives: No service: No Current occupational status: unemployed Sexual orientation: Straight/Heterosexual Physical Exam Vital Signs: Vital Signs: Last Vital Signs Pulse 90 11/28/21 05:48 Resp 16 11/28/21 05:48 BP 112/70 11/28/21 05:48 Pulse Ox 96 11/28/21 05:48 BMI result Body Mass Index 26.4 Const: Other: Appearance: Alert. Oriented X3. No acute distress. Well-appearing Eyes: Pupils equal, round and reactive to light. ENT: Pharynx normal. Neck: Normal inspection. Neck supple. No lymph nodes noted. No crepitus CVS: Normal heart rate and rhythm. Pulses normal. Normal S1 and S2, reproducible chest pain on palpation Respiratory: No respiratory distress. Breath sounds normal. No Wheezing. No rales Abdomen: Soft and nontender. No rigidity. No distention. good BS x4 Skin: Skin warm and dry. Normal skin color. Normal skin turgor. Extremities: No lower extremity edema. No Lacerations. No Rash Neuro: Oriented X 3. No motor deficit. No sensory deficit. Moving all extermities. No slurred speech. Course Course Course Narrative: I discussed the EKG and labs with the patient, no acute findings. Patient well appearing, vitals stable. MDM - Chest Pain Lab Data Result diagrams: 11/28/21 06:18 11/28/21 06:18 Labs: Lab Results 11/28/21 11/28/21 11/28/21 Range/Units 06:18 06:18 06:18 WBC 11.1 H (4.8-10.8) X10*3/uL RBC 4.57 L (4.60-5.80) X10*6/uL Hgb 14.8 (14.0-18.0) g/dl Hct 43.8 (42.0-52.0) % MCV 95.8 (80.0-98.0) fL MCH 32.4 (27.0-33.0) pg MCHC 33.8 (31.0-36.0) g/dl RDW 11.5 (11.0-16.0) % Plt Count TNP MPV 9.4 (9.4-12.4) fL Immature Gran % (Auto) 0.3 (0.0-0.4) % Neut % (Auto) 74.2 H (45-73) % Lymph % (Auto) 10.7 L (20-40) % [place] % (Auto) 14.2 H (2-11) % Eos % (Auto) 0.5 (0-4) % Baso % (Auto) 0.1 (0-2) % Lymph # (Auto) 1.2 (1.2-4.9) X10*3/uL [place] # (Auto) 1.6 H (0.1-1.2) X10*3/uL Eos # (Auto) 0.1 (0.0-0.4) X10*3/uL Baso # (Auto) 0.0 (0.0-0.2) X10*3/uL Abs Immat Gran (auto) 0.03 (0.00-0.03) X10*3/uL Absolute Neuts (auto) 8.2 (2.0-8.3) x10*3/uL Absolute Nucleated RBC 0.000 (0.0-0.012) X10*3/uL Nucleated RBC % (auto) 0.0 (0.0-0.2) /100WBC Smear Tech's Comments VERIFIED Sodium 137 (135-145) mmol/L Potassium 3.7 (3.3-5.1) mmol/L Chloride 105 (96-108) mmol/L Carbon Dioxide 24 (22-29) mmol/L Anion Gap 12 (12-20) BUN 6 L D (9-16) mg/dL Creatinine 0.77 (0.5-1.4) mg/dL Estim Creat Clear Calc 116.3 Estimated GFR > 60 Random Glucose 109 (60-115) mg/dL Calcium 9.1 (8.4-10.2) mg/dL Troponin I High Sens < 3.5 (<3.5-35.0) ng/L Discharge Plan Discharge Clinical Impression: Atypical chest pain Patient Disposition: Home, Self-Care Instructions: Chest Pain (DC) Additional Instructions: Please follow-up with your primary care physician tomorrow. If you have any worsening or new symptoms, please return to the emergency room or call 911 Prescriptions: New ibuprofen 600 mg tablet 600 mg PO Q6H PRN (Reason: pain) Qty: 14 0RF No Action melatonin 1 mg tablet 1 mg PO BEDTIME PRN (Reason: sleep) Qty: 30 0RF
[2021-11-28 06:25] LABS: Basophils Percent Auto 0.1 % (0-2); Eosinophils Absolute Auto 0.1 X10*3/uL (0.0-0.4); Eosinophils Percent Auto 0.5 % (0-4); Hematocrit 43.8 % (42.0-52.0); Hemoglobin 14.8 g/dl (14.0-18.0); Imm Gran Abs Auto 0.03 X10*3/uL (0.00-0.03); Imm Gran Pct Auto 0.3 % (0.0-0.4); Lymphocytes Absolute Auto 1.2 X10*3/uL (1.2-4.9); Lymphocytes Percent Auto 10.7 % (20-40); MANUAL DIFF FLAG SCAN; Mean Corpuscular HGB Conc 33.8 g/dl (31.0-36.0); Mean Corpuscular Hemoglobin 32.4 pg (27.0-33.0); Mean Corpuscular Volume 95.8 fL (80.0-98.0); Mean Platelet Volume 9.4 fL (9.4-12.4); Monocytes Absolute Auto 1.6 X10*3/uL (0.1-1.2); Monocytes Percent Auto 14.2 % (2-11); Neutrophils Absolute Auto 8.2 x10*3/uL (2.0-8.3); Neutrophils Percent Auto 74.2 % (45-73); PLT CLUMP 1; Red Blood Count 4.57 X10*6/uL (4.60-5.80); Red Cell Distribution Width 11.5 % (11.0-16.0); SCAN SMEAR FLAG 1
[2021-11-28 06:27] LABS: White Blood Count 11.1 X10*3/uL (4.8-10.8)
[2021-11-28 06:37] LABS: Anion Gap 12 (12-20); Blood Urea Nitrogen 6 mg/dL (9-16); Calcium 9.1 mg/dL (8.4-10.2); Carbon Dioxide 24 mmol/L (22-29); Chloride 105 mmol/L (96-108); Creatinine Clr Calc Pharmacy 116.3; Estimated Glomerular Filt Rate > 60; Glucose Random 109 mg/dL (60-115); Potassium 3.7 mmol/L (3.3-5.1); Sodium 137 mmol/L (135-145)
[2021-11-28 06:42] LABS: SLIDE REVIEW VERIFIED; Troponin-I High Sensitivity < 3.5 ng/L (<3.5-35.0)
[2021-11-28 07:29] VITALS: BP 105/66; PULSE 81; RESP 16; O2SAT 98
== END 2021-11-28 07:30 | disposition home or self-care (01) ==
PROVIDERS: Emergency Provider Emergency Medicine
DX: R07.89 Other chest pain (principal); F17.200 Nicotine dependence, unspecified, uncomplicated
CPT/HCPCS: 36415; 80048; 84484; 85025; 93005; 99283; 99284

== ENCOUNTER 2021-12-29 09:12 | Outpatient (REF) | payer OTHER, SELFPAY ==
[2021-12-29 09:43] LABS: MANUAL DIFF FLAG NO
[2021-12-29 09:57] LABS: Basophils Percent Auto 0.2 % (0-2); Eosinophils Absolute Auto 0.2 X10*3/uL (0.0-0.4); Eosinophils Percent Auto 2.2 % (0-4); Hematocrit 50.3 % (42.0-52.0); Hemoglobin 16.5 g/dl (14.0-18.0); Imm Gran Abs Auto 0.02 X10*3/uL (0.00-0.03); Imm Gran Pct Auto 0.2 % (0.0-0.4); Lymphocytes Absolute Auto 2.5 X10*3/uL (1.2-4.9); Lymphocytes Percent Auto 25.7 % (20-40); Mean Corpuscular HGB Conc 32.8 g/dl (31.0-36.0); Mean Corpuscular Hemoglobin 32.2 pg (27.0-33.0); Mean Corpuscular Volume 98.2 fL (80.0-98.0); Mean Platelet Volume 8.9 fL (9.4-12.4); Monocytes Percent Auto 10.7 % (2-11); Neutrophils Absolute Auto 5.9 x10*3/uL (2.0-8.3); Platelet Count 227 X10*3/uL (160-400); Red Blood Count 5.12 X10*6/uL (4.60-5.80); Red Cell Distribution Width 11.5 % (11.0-16.0); White Blood Count 9.7 X10*3/uL (4.8-10.8)
[2021-12-29 10:29] LABS: Alanine Aminotransferase 54 U/L (0-40); Albumin Level 4.8 g/dL (3.5-5.0); Alkaline Phosphatase 120 U/L (39-117); Anion Gap 11 (12-20); Aspartate Amino Transferase 25 U/L (5-37); Bilirubin Total 0.9 mg/dL (0.0-1.0); Blood Urea Nitrogen 10 mg/dL (9-16); Calcium 10.4 mg/dL (8.4-10.2); Carbon Dioxide 30 mmol/L (22-29); Chloride 103 mmol/L (96-108); Cholesterol 218 mg/dL; Estimated Glomerular Filt Rate > 60; Glucose Fasting 99 mg/dL (60-99); HDL Cholesterol 40 mg/dL; LDL Cholesterol Calculated 151 mg/dl; Potassium 4.2 mmol/L (3.3-5.1); Sodium 140 mmol/L (135-145); Total Protein 7.6 g/dL (6.5-8.0); Triglycerides 139 mg/dL
[2021-12-29 10:55] LABS: TSH reflex Free T4 3.02 uIU/mL (0.32-4.0)
[2021-12-30 10:25] LABS: Prolactin 4.6 ng/mL (2.0-18.0)
[2022-01-02 17:31] LABS: IGF-1 (Somatomedin C) 150 ng/mL (53-331)
== END 2021-12-29 09:13 | disposition home or self-care (01) ==
LOC: HO.LAB 09:12
PROVIDERS: PCP Internal Medicine; Visit Provider Nurse Practitioner Acute Care
DX: D35.2 Benign neoplasm of pituitary gland (principal)
CPT/HCPCS: 36415; 80053; 80061; 84146; 84305; 84443; 85025

== ENCOUNTER 2022-01-20 07:54 | Outpatient (REF) | payer OTHER, SELFPAY ==
[2022-01-20 11:13] LABS: Cortisol Random 7.1 ug/dL
[2022-01-20 11:17] LABS: Free T4 (Free Thyroxine) 0.93 ng/dL (0.71-1.85); Thyroid Stimulating Hormone 4.11 uIU/mL (0.32-4.0)
[2022-01-26 07:56] LABS: Follicle Stimulating Hormone 2.4 mIU/mL (1.6-8.0); Lutenizing Hormone 3.4 mIU/mL (1.5-9.3); Prolactin Undiluted 4.7 ng/mL (2.0-18.0)
[2022-01-27 14:21] LABS: Testosterone, Free 149.5 pg/mL (35.0-155.0); Testosterone, Total 840 ng/dL (250-1100)
== END 2022-01-20 07:55 | disposition home or self-care (01) ==
LOC: HO.LAB 07:54
PROVIDERS: PCP Internal Medicine; Visit Provider Internal Medicine Endocrinology, Diabetes & Metabolism
DX: D35.2 Benign neoplasm of pituitary gland (principal)
CPT/HCPCS: 36415; 82533; 83001; 83002; 84146; 84402; 84403; 84439; 84443; 99202

== ENCOUNTER 2022-01-22 15:49 | Outpatient (REF) | payer OTHER, SELFPAY ==
[2022-01-22 16:15] LABS: Creatinine, mg/dL 165.82
[2022-01-22 20:58] LABS: Creatinine, 24Hr Urine 1.6 G/Day (1.0-2.0); Total Volume 24 Hour Urine 950 mL
[2022-01-28 14:51] LABS: Cortisol Free, 24 Hr Urine 49.9 mcg/24 h (4.0-50.0); Creatinine, 24 Hr Urine 1.55 g/24 h (0.50-2.15); Total Volume, 24 Hr Urine 950 mL
== END 2022-01-22 15:50 | disposition home or self-care (01) ==
LOC: HO.LNP 15:49
PROVIDERS: Visit Provider Internal Medicine Endocrinology, Diabetes & Metabolism
DX: D35.2 Benign neoplasm of pituitary gland (principal)
CPT/HCPCS: 82530; 82570

== ENCOUNTER 2022-02-02 08:05 | Outpatient (REF) | payer OTHER, SELFPAY ==
[2022-02-04 09:02] LABS: Cortisol 30 Minute 35.8 mcg/dL; Cortisol 60 Minute 41.3 mcg/dL; Cortisol Baseline 18.6 mcg/dL
[2022-02-04 12:42] LABS: Adrenocorticotropic Hormone 13 pg/mL (6-50)
== END 2022-02-02 08:06 | disposition home or self-care (01) ==
LOC: HO.MDS 08:05
PROVIDERS: PCP Internal Medicine; Visit Provider Internal Medicine Endocrinology, Diabetes & Metabolism
DX: D35.2 Benign neoplasm of pituitary gland (principal)
CPT/HCPCS: 36415; 82024; 82533; 96374; J0834

== ENCOUNTER 2022-02-23 14:51 | Outpatient (REF) | payer OTHER, SELFPAY ==
--- NOTE | ~2022-02-23 | MR_ITS ---
EXAMINATION: MR BRAIN WITHOUT AND WITH CONTRAST CLINICAL INFORMATION: 31-year-old undergoing follow up for pituitary gland neoplasm. COMPARISON: 05/28/2021 MRI. TECHNIQUE: Multiplanar, multisequence MRI of the brain/sella was obtained before and after the intravenous administration of 3 mL Gadavist. FINDINGS: Redemonstrated is a relatively homogenously hypoenhancing lesion within the sella protruding into the suprasellar cistern consistent with a pituitary macroadenoma. Maximum dimensions in the craniocaudal dimension are 1.5 cm compared to 1.4 cm on the previous study. Maximum AP dimension in the sagittal plane is 1.3 cm compared to 1.3 cm on the previous study. Maximum transverse dimension in the coronal plane is approximately 1.2 to 1.3 cm stable in appearance. Suprasellar extension of the lesion is again noted without compression of the optic chiasm. No compression of the prechiasmatic optic nerves or optic tracts. The infundibulum remains midline and posteriorly displaced with no change in enhancement. The cavernous sinuses enhance symmetrically. There is no cavernous sinus invasion. There is some remodeling along the roof of the sphenoid sinus. Normal signal voids in the adjacent carotid siphons. No focal reduced diffusion is seen to suggest acute or subacute cerebral ischemia. Remainder of the brain is normal in morphology and signal intensity. No intracranial mass lesions, abnormal enhancement, space-occupying process or mass effect are identified. No extra-axial fluid collections. The ventricular system and subarachnoid spaces are unchanged in appearance without hydrocephalus with asymmetric enlargement of the left lateral ventricle, likely developmental unchanged. Normal signal voids are seen in the visualized major intracranial vessels. Nasal septal deviation to the right anteriorly similar to previous exam with moderate mucosal thickening throughout the ethmoid complex stable in appearance. Bone marrow signal intensity appears within normal limits. MR/MR head/brain wo/w con IMPRESSION: 1. Previously noted pituitary macroadenoma measures 1.5 cm maximum craniocaudal dimension compared to 1.4 cm on the previous exam but is otherwise stable in the other dimensions and there is no mass effect on the adjacent optic chiasm at this point. 2. Remainder of the study demonstrates no acute intracranial process.
== END 2022-02-23 14:52 | disposition home or self-care (01) ==
LOC: HO.MRI 14:51
PROVIDERS: Visit Provider Internal Medicine Endocrinology, Diabetes & Metabolism
DX: D35.2 Benign neoplasm of pituitary gland (principal)
CPT/HCPCS: 70553; A9585

== ENCOUNTER 2022-06-10 21:12 | Emergency (ER) | payer OTHER, SELFPAY ==
[2022-06-10 22:21] VITALS: BP 120/73; PULSE 88; RESP 16; TEMP 37.3; O2SAT 98; BMI 23.3
--- NOTE | 2022-06-11 00:15 | ED_ITS ---
HPI - Wound/Laceration General Chief Complaint: Wound/Laceration Stated Complaint: laceration left wrist Time Seen by Provider: 06/10/22 22:47 Source: patient Mode of arrival: ambulatory Limitations: no limitations History of Present Illness HPI narrative: 31-year-old male with a PMHx of AKIN, pituitary adenoma, depression, and alcoholism, who presents with laceration to the left wrist. The patient reports that he was reaching under his bed to grab a pair of shoes earlier today when he heard his dog growling so he pulled his hand out quickly and cut his left wrist on a nail that was sticking out of the bed frame. He denies any additional complaints at this time. He is UTD with his tetanus vaccination. Related Data Home Medications Medication Instructions Recorded Confirmed No Known Home Meds 12/23/21 03/17/22 Allergies Allergy/AdvReac Type Severity Reaction Status Date / Time No Known Allergies Allergy Verified 03/17/22 13:57 [No Known Allergies*] Review of Systems Review of Systems: Constitutional : No Weight loss, No Fever, No Chills, No Fatigue, No Malaise ENT/Mouth : No sore throat, No Rhinorrhea Eyes: No Eye Pain, No Swelling, No Redness Cardiovascular : No Chest Pain, No SOB, No Dyspnea on Exertion, No Orthopnea, No Edema, No Palpitations Respiratory : No Cough, No Sputum, No Wheezing Gastrointestinal : No Nausea, No Vomiting, No Diarrhea, No Constipation, No abdominal Pain, No Hematochezia, No Melena Genitourinary : No Dysuria, No Urinary Frequency, No Hematuria, Musculoskeletal : No joint pain, No Myalgias, No Joint Swelling Skin : No Skin Lesions, No rash, + laceration to left wrist Neuro : No Weakness, No Numbness, No Dizziness, No Headache Psych : No Anxiety/Panic, No Depression All other systems reviewed and are negative Yes all other systems are reviewed and are negative [facility] Past Medical History Attestation statement: The following information was validated with the patient. 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 Pituitary mass Surgical History No pertinent past surgical history Family History Family History Mother Thyroid disease Father Diabetes Hypertension Neuropathy Social History Social History (Updated 03/17/22 @ 14:09 by Maggi Giraldo MD) Household Members: Significant Other Household Members Other:: SO and her two children Housing: Apartment Do you presently have visiting nurse or other home services: No Alcohol intake: current Alcohol intake frequency: a few times a month Alcohol type: beer Patient Tobacco Use Status: Current everyday Tobacco user Tobacco use type: Cigarette Cigarettes Per Day: 10 Years Smoked: 14 e-Cigarette/Vaping Use: Never Used Second Hand Smoke Exposure: Yes Advance Directives: No Advance Directives Information Provided: Yes service: No Current occupational status: unemployed Sexual orientation: Straight/Heterosexual Cognitive needs: No Hearing needs: No Vision needs: No Physical Exam Vital Signs: Vital Signs: Last Vital Signs Temp 98.8 F 06/11/22 00:27 Pulse 93 06/11/22 00:27 Resp 18 06/11/22 00:27 BP 122/81 06/11/22 00:27 Pulse Ox 99 06/11/22 00:27 O2 Del Method 06/11/22 00:27 BMI result Body Mass Index 23.3 VSS Appearance: Alert.? Oriented X3.? No acute distress.? Head: Normocephalic, atraumatic, no step-offs or deformities Eyes: Pupils equal, round and reactive to light.? ENT: Pharynx normal.? Neck: Normal inspection.? Neck supple.? CVS: Normal heart rate and rhythm.? Pulses normal.? Respiratory: No respiratory distress.? Breath sounds normal.? Abdomen: Soft and nontender.? Skin: Skin warm and dry.? Normal skin color.? Normal skin turgor.?Laceration to left wrist. +3 cm linear lac to ventral aspect of wrist no FB visualized. cap refill <2 seconds. normal rom to fingers. 2+ radial pulses. Normal hand hand mexican food maker no wrist drop Extremities: No lower extremity edema.? No calf ttp. 5/5 strength to bilateral upper and lower extremities Neuro: Oriented X 3.? No motor deficit.? No sensory deficit. CN 2-12 intact Course Reevaluation(s) Reevaluation #1: Area was closed using 3 , 5-0 sutures. And Steri-Strips. Patient tolerated procedure well. At this time patient will be discharged home. Advised return with new or worsening symptoms, educated on worrisome signs and symptoms and outlined on discharge. Comfortable discharge home Time: 00:46 MDM - Wound/Laceration MDM Narrative Medical decision making narrative: 31 y/o M with a PMHx of AKIN, depression, alcoholism, presenting with left wrist laceration. UTD on tetanus. PE significant for laceration to the left wrist, middle part of laceration deeper than surrounding area. No foreign bodies. Plan suture area Medical Records Attestation: I reviewed the patient's medical records. Lab Data Attestation: I reviewed the patient's lab results. Procedures Laceration Laceration 1: Site: upper extremity Side (If applicable): left Size (cm): 3 Description: linear Depth: simple, single layer Local Anesthetic: lidocaine 1% Amount of anesthesia used (mL): 4 Pre-repair: wound explored, irrigated extensively and deep structures intact Skin layer closed with: vicryl Size (cm): 5-0 Number of sutures: 3 Critical Care Time Critical Care Time Critical Care Time: No Discharge Plan Discharge Clinical Impression: Laceration Patient Disposition: Home, Self-Care Additional Instructions: Take your medications as prescribed. If you were prescribed antibiotics today, it is important that you take your medication to their entirety, do not skip any doses, do not finish them early. Follow-up with your primary care provider this week. Return to the emergency department with new or worsening symptoms. Such as fevers, chills, chest pain, shortness of breath, nausea, vomiting, dizziness, headache, vision changes, lethargy In case of emergency call 911 Return in 7-10 days for suture removal. Return when any signs of infection such as redness, swelling or discharge from the site. Prescriptions: No Action No Known Home Meds Referrals: Maggi Denny MD [Primary Care Provider] - 2 days Stand Alone Forms: Work/School Release
[2022-06-11 00:27] VITALS: BP 122/81; PULSE 93; RESP 18; TEMP 37.1; O2SAT 99
[2022-06-11] MEDS: Lidocaine HCl 1 % MPF 5 ML VIAL 2 ML SUBCUT ×2 (01:41)
== END 2022-06-11 01:25 | disposition home or self-care (01) ==
PROVIDERS: Emergency Provider Internal Medicine; PCP Internal Medicine
DX: S61.412A Laceration without foreign body of left hand, initial encounter (principal); Y28.9XXA Contact with unspecified sharp object, undetermined intent, initial encounter; Y93.9 Activity, unspecified; Y92.9 Unspecified place or not applicable; Y99.9 Unspecified external cause status; F17.210 Nicotine dependence, cigarettes, uncomplicated; Z71.6 Tobacco abuse counseling; Z79.899 Other long term (current) drug therapy
CPT/HCPCS: 12002; 99283

== ENCOUNTER 2022-06-13 09:54 | Emergency (ER) | payer OTHER, SELFPAY ==
--- NOTE | ~2022-06-13 | CT_ITS ---
EXAMINATION: CT HEAD WITHOUT CONTRAST CLINICAL INFORMATION: Closed head injury with headache COMPARISON: Brain MRI 02/23/2022 TECHNIQUE: Imaging was performed from the skull base to vertex without intravenous administration of contrast. This CT examination was performed using dose optimization techniques as appropriate, variously including the following: *Automated exposure control *Adjustment of mA and/or kV according to patient size (this includes techniques or standardized protocols for targeted exams where dose is matched to indication/reason for exam; i.e. extremities or head) *Use of iterative reconstruction technique Total exam dose length product: 646 mGy-cm FINDINGS: Unchanged known pituitary macroadenoma measuring approximate 1.3 cm-1.4 in craniocaudal dimension. No other intra or extra-axial fluid collection, hemorrhage, or mass. No midline shift or herniation. Basal cisterns are patent. Unchanged asymmetric mild enlargement of left lateral ventricle relative to the right, likely normal variation. No territorial encephalomalacia. Ha-white matter differentiation is maintained No significant volume loss. There is no abnormal attenuation within the brain parenchyma. No calvarial fracture or soft tissue abnormality. The mastoid air cells and visualized portions of the paranasal sinuses are well aerated. CT/CT head/brain wo IV con IMPRESSION: 1. No acute intracranial pathology. 2. Unchanged size of known pituitary macroadenoma.
[2022-06-13 10:08] VITALS: BP 140/86; PULSE 86; RESP 16; TEMP 36.6; O2SAT 98; BMI 22.6
[2022-06-13 12:39] LABS: Basophils Percent Auto 0.1 % (0-2); Eosinophils Absolute Auto 0.1 X10*3/uL (0.0-0.4); Eosinophils Percent Auto 0.8 % (0-4); Hematocrit 47.9 % (42.0-52.0); Hemoglobin 16.4 g/dl (14.0-18.0); Imm Gran Abs Auto 0.03 X10*3/uL (0.00-0.03); Imm Gran Pct Auto 0.3 % (0.0-0.4); Lymphocytes Absolute Auto 1.8 X10*3/uL (1.2-4.9); Lymphocytes Percent Auto 18.9 % (20-40); MANUAL DIFF FLAG NO; Mean Corpuscular HGB Conc 34.2 g/dl (31.0-36.0); Mean Corpuscular Hemoglobin 33.2 pg (27.0-33.0); Mean Platelet Volume 8.7 fL (9.4-12.4); Monocytes Percent Auto 10.8 % (2-11); Neutrophils Absolute Auto 6.5 x10*3/uL (2.0-8.3); Neutrophils Percent Auto 69.1 % (45-73); Platelet Count 216 X10*3/uL (160-400); Red Blood Count 4.94 X10*6/uL (4.60-5.80); Red Cell Distribution Width 11.9 % (11.0-16.0); White Blood Count 9.5 X10*3/uL (4.8-10.8)
[2022-06-13 13:10] LABS: Alanine Aminotransferase 32 U/L (0-40); Alkaline Phosphatase 113 U/L (39-117); Anion Gap 15 (12-20); Aspartate Amino Transferase 23 U/L (5-37); Bilirubin Total 0.6 mg/dL (0.0-1.0); Blood Urea Nitrogen 10 mg/dL (9-16); Calcium 10.3 mg/dL (8.4-10.2); Carbon Dioxide 27 mmol/L (22-29); Chloride 102 mmol/L (96-108); Creatinine Clr Calc Pharmacy 122.1; Estimated Glomerular Filt Rate > 60; Glucose Random 92 mg/dL (60-115); Potassium 4.6 mmol/L (3.3-5.1); Sodium 139 mmol/L (135-145); Total Protein 7.8 g/dL (6.5-8.0)
--- NOTE | 2022-06-13 16:24 | ED_ITS ---
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 Mild major depression, single episode Pituitary mass Surgical History No pertinent past surgical history Family History Family History Mother Thyroid disease Father Diabetes Hypertension Neuropathy Social History Social History Household Members: Significant Other Household Members Other:: SO and her two children Housing: Apartment Do you presently have visiting nurse or other home services: No Alcohol intake: current Alcohol intake frequency: a few times a week Alcohol type: beer Patient Tobacco Use Status: Never used Tobacco Tobacco use type: Cigarette Cigarettes Per Day: 10 Years Smoked: 14 e-Cigarette/Vaping Use: Never Used Second Hand Smoke Exposure: Yes Use of substances other than those prescribed or required for medical reasons: No Advance Directives: No Advance Directives Information Provided: No service: No Current occupational status: unemployed Sexual orientation: Straight/Heterosexual Cognitive needs: No Hearing needs: No Vision needs: No Physical Exam Vital Signs: Vital Signs: Last Vital Signs Temp 97.8 F 06/13/22 10:08 Pulse 77 06/13/22 17:57 Resp 18 06/13/22 17:57 BP 132/83 06/13/22 17:57 Pulse Ox 98 06/13/22 17:57 O2 Del Method 06/13/22 17:57 BMI result Body Mass Index 22.6 Appearance: Alert. Oriented X3. No acute distress. Eyes: PERRLA, No Nystagmus ENT: Pharynx normal. Oral Mucosa moist Neck: Normal inspection. Neck supple. CVS: Normal heart rate and rhythm. Pulses normal. Respiratory: No respiratory distress. Equal air entry bilateral, no wheezing/rales/rhonchi Abdomen: Soft and nontender. Bowel sounds are present, no mass palpable, no CVA tenderness Skin: Skin warm and dry. Normal skin color. Normal skin turgor. Extremities: No lower extremity edema. No calf tenderness Neuro: Oriented X 3. No motor deficit. No sensory deficit.No cerebellar signs , cranial nerves II-XII intact MDM - Headache Lab Data Result diagrams: 06/13/22 12:34 06/13/22 12:34 Labs: Lab Results 06/13/22 06/13/22 Range/Units 12:34 12:34 WBC 9.5 (4.8-10.8) X10*3/uL RBC 4.94 (4.60-5.80) X10*6/uL Hgb 16.4 (14.0-18.0) g/dl Hct 47.9 (42.0-52.0) % MCV 97.0 (80.0-98.0) fL MCH 33.2 H (27.0-33.0) pg MCHC 34.2 (31.0-36.0) g/dl RDW 11.9 (11.0-16.0) % Plt Count 216 (160-400) X10*3/uL MPV 8.7 L (9.4-12.4) fL Immature Gran % (Auto) 0.3 (0.0-0.4) % Neut % (Auto) 69.1 (45-73) % Lymph % (Auto) 18.9 L (20-40) % Treasure % (Auto) 10.8 (2-11) % Eos % (Auto) 0.8 (0-4) % Baso % (Auto) 0.1 (0-2) % Lymph # (Auto) 1.8 (1.2-4.9) X10*3/uL Treasure # (Auto) 1.0 (0.1-1.2) X10*3/uL Eos # (Auto) 0.1 (0.0-0.4) X10*3/uL Baso # (Auto) 0.0 (0.0-0.2) X10*3/uL Abs Immat Gran (auto) 0.03 (0.00-0.03) X10*3/uL Absolute Neuts (auto) 6.5 (2.0-8.3) x10*3/uL Absolute Nucleated RBC 0.000 (0.0-0.012) X10*3/uL Nucleated RBC % (auto) 0.0 (0.0-0.2) /100WBC Sodium 139 (135-145) mmol/L Potassium 4.6 (3.3-5.1) mmol/L Chloride 102 (96-108) mmol/L Carbon Dioxide 27 (22-29) mmol/L Anion Gap 15 (12-20) BUN 10 (9-16) mg/dL Creatinine 0.78 (0.5-1.4) mg/dL Estim Creat Clear Calc 122.1 Estimated GFR > 60 Random Glucose 92 (60-115) mg/dL Calcium 10.3 H (8.4-10.2) mg/dL Total Bilirubin 0.6 (0.0-1.0) mg/dL AST 23 (5-37) U/L ALT 32 (0-40) U/L Alkaline Phosphatase 113 (39-117) U/L Total Protein 7.8 (6.5-8.0) g/dL Albumin 5.0 (3.5-5.0) g/dL Discharge Plan Discharge Clinical Impression: Headache, Pituitary macroadenoma Patient Disposition: Home, Self-Care Instructions: Pituitary Adenoma (ED), General Headache (ED) Additional Instructions: your CT scan did not show any change in the size of macro adenoma Take Tylenol/Advil for pain and follow-up with neuro specialist Prescriptions: No Action No Known Home Meds Interventions: ED Discharge Assessment Last Done: 06/13/22 17:58 Discharge Date/Time: 06/13/22 17:59
[2022-06-13 17:57] VITALS: BP 132/83; PULSE 77; RESP 18; O2SAT 98
== END 2022-06-13 17:59 | disposition home or self-care (01) ==
PROVIDERS: Emergency Provider Internal Medicine; PCP Internal Medicine
DX: D35.2 Benign neoplasm of pituitary gland (principal); R51.9 Headache, unspecified; M54.2 Cervicalgia; F17.210 Nicotine dependence, cigarettes, uncomplicated; Z71.6 Tobacco abuse counseling; Z79.899 Other long term (current) drug therapy
CPT/HCPCS: 36415; 70450; 80053; 85025; 99284

== ENCOUNTER 2022-07-01 09:47 | Outpatient (REF) | payer OTHER, SELFPAY ==
--- NOTE | ~2022-07-01 | MR_ITS ---
EXAMINATION: MR BRAIN WITHOUT AND WITH CONTRAST CLINICAL INFORMATION: Pituitary adenoma. COMPARISON: Brain MRI 02/23/2022. TECHNIQUE: Multiplanar MR imaging of the brain was performed without and with contrast. A total of 3.5 mL Gadavist was utilized for this examination. FINDINGS: There is a well marginated enhancing intrasellar mass located at the anterior aspect of the anterior lobe of the pituitary gland measuring up to 1.5 cm in height. This finding has remained stable when compared to the most recent prior examination from 02/23/2022. Its superior surface bulges into the suprasellar cistern causing posterior displacement of the pituitary stalk. No overt chiasmatic compression. No evidence of cavernous sinus invasion. Cavernous internal carotid artery flow voids are maintained. Postcontrast images of the whole brain reveal no abnormal mass or enhancement elsewhere within the intracranial compartment. There is no intracranial mass effect or midline shift. Lateral and third ventricles are proportionate to the subarachnoid spaces. No hydrocephalus. The cervicomedullary junction is normal. No acute bone marrow signal changes. There is no acute territorial infarct. Intracranial vascular flow voids are grossly maintained. There is a trace left mastoid effusion. Trivial mucosal thickening within ethmoid air cells and the alveolar recesses of the maxillary sinuses. Globes and orbits are grossly symmetric. MR/MR head/brain wo/w con IMPRESSION: Stable examination. Specifically the size of a pituitary macroadenoma is unchanged. No chiasmatic compression and no cavernous sinus invasion.
== END 2022-07-01 09:48 | disposition home or self-care (01) ==
LOC: HO.MRI 09:47
PROVIDERS: Visit Provider Neurological Surgery
DX: D35.2 Benign neoplasm of pituitary gland (principal); D35.3 Benign neoplasm of craniopharyngeal duct
CPT/HCPCS: 70553; A9585

== ENCOUNTER 2022-08-11 11:58 | Outpatient (REF) | payer OTHER, SELFPAY ==
[2022-08-11 13:24] LABS: Syphilis Screen Nonreactive (Nonreactive)
[2022-08-11 15:34] LABS: CT PCR NOT DETECTED (Not Detect.); NG PCR NOT DETECTED (Not Detect.)
[2022-08-12 06:35] LABS: HIV AB/AG Nonreactive (Nonreactive); HIV Num 1 0.11 S/CO (0.00-0.99)
== END 2022-08-11 11:59 | disposition home or self-care (01) ==
LOC: HO.LAB 11:58
PROVIDERS: PCP Internal Medicine; Visit Provider Internal Medicine
DX: Z11.4 Encounter for screening for human immunodeficiency virus [HIV] (principal); Z11.3 Encounter for screening for infections with a predominantly sexual mode of transmission; Z20.2 Contact with and (suspected) exposure to infections with a predominantly sexual mode of transmission
CPT/HCPCS: 86780; 87389; 87491; 87591

== ENCOUNTER 2022-09-11 17:10 | Emergency (ER) | payer OTHER, SELFPAY ==
[2022-09-11 17:18] VITALS: BP 141/76; PULSE 93; RESP 20; TEMP 36.8; O2SAT 97; BMI 20.9
--- NOTE | 2022-09-11 18:15 | ED_ITS ---
HPI - General Adult General Chief complaint: General Medical Stated complaint: head ache congestion Time Seen by Provider: 09/11/22 18:12 Source: patient, RN notes reviewed and old records reviewed Mode of arrival: ambulatory Limitations: no limitations History of Present Illness HPI narrative: 31-year-old male with past medical history of migraine headaches, AKIN, pituitary micro adenoma, depressive disorder is here today for complaining of headache. Patient reports that his was seen here earlier for COVID like symptoms and tested positive for COVID-19. Patient states that he started having headache wi thout fever, chills, SOB with or without exertion. Patient denies any other respiratory symptoms. History of pituitary microadenoma will be going for surgery to [place] this coming week. Pending COVID, testing done in triage. Onset (ago): hour(s) Location: head Related Data Previous Rx's Medication Instructions Recorded meloxicam 15 mg tablet 15 mg PO DAILY #14 tabs 06/14/22 Allergies Allergy/AdvReac Type Severity Reaction Status Date / Time No Known Allergies Allergy Verified 06/14/22 11:22 [No Known Allergies*] Review of Systems Review of Systems: Constitutional : No Weight loss, No Fever, No Chills, No Night Sweats, No Fatigue, No Malaise ENT/Mouth : No Hearing loss, No Ear Pain, No Nasal Congestion, No Sinus Pain, No Hoarseness, No sore throat, No Rhinorrhea, No Swallowing Difficulty Eyes: No Eye Pain, No Swelling, No Redness, No Foreign Body, No Discharge, No Vision Changes Cardiovascular : No Chest Pain, No SOB, No Dyspnea on Exertion, No Orthopnea, No Edema, No Palpitations Respiratory : No Cough, No Sputum, No Wheezing, No Smoke Exposure, No Dyspnea Gastrointestinal : No Nausea, No Vomiting, No Diarrhea, No Constipation, No abdo melissa Pain, No Hematochezia, No Melena Genitourinary : no irregular bleeding, No Dysuria, No Urinary Frequency, No Hematuria, No Urinary Incontinence, No Urgency, No Flank Pain, No Urinary Flow Changes, No Hesitancy Musculoskeletal : No joint pain, No Myalgias, No Joint Swelling Skin : No Skin Lesions, No rash Neuro : No Weakness, No Numbness, No Paresthesias, No Loss of Consciousness, No Dizziness, No Headache Psych : Anxiety, No Depression, No SI/HI/AH/VH, No Social Issues, Heme/Lymph: No Bruising, No Bleeding,No Lymphadenopathy Endocrine : No Polyuria, No Polydipsia, No Temperature Intolerance Yes all other systems are reviewed and are negative [facility] Past Medical History Medical History Abnormal TSH Alcoholism Anxiety Anxiety Blurry vision Daytime somnolence Family history of hypertension 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 Mild major depression, single episode Pituitary mass Surgical History No pertinent past surgical history Family History Family History Mother Thyroid disease Father Diabetes Hypertension Neuropathy Social History Social History Household Members: Significant Other Household Members Other:: SO and her two children Housing: Apartment Do you presently have visiting nurse or other home services: No Alcohol intake: current Alcohol intake frequency: a few times a week Alcohol type: beer Patient Tobacco Use Status: Never used Tobacco Tobacco use type: Cigarette Cigarettes Per Day: 10 Years Smoked: 14 e-Cigarette/Vaping Use: Never Used Second Hand Smoke Exposure: Yes Advance Directives: No Advance Directives Information Provided: No service: No Current occupational status: unemployed Sexual orientation: Straight/Heterosexual Cognitive needs: No Hearing needs: No Vision needs: No Physical Exam ED Vital Signs: Vital Signs - 24 hr 09/11/22 17:18 Temperature 98.2 F Pulse Rate 93 Respiratory Rate 20 Blood Pressure 141/76 H Pulse Oximetry 97 Oxygen Delivery Method Room Air BMI result Body Mass Index 20.9 Const General: cooperative, healthy appearing, comfortable, no acute distress, well developed and alert Nutritional Appearance: average body habitus and well nourished Orientation/consciousness: patient oriented x3 Limitations: no limitations HENMT Head: Yes normal to inspection, Yes normocephalic and Yes atraumatic Ears: hearing grossly normal bilaterally and external ears normal General nose exam: Normal external nose present Face and sinus: Yes normal facial exam Mouth: Normal oral and palatal mucosa present and lip normal Throat: Yes posterior oropharynx normal and Yes tonsils normal Neck Neck: Yes normal visual inspection, Yes full ROM, Yes no lymphadenopathy and Yes trachea midline Resp Effort & Inspection: normal respiratory effort and abnormal respiratory pattern Auscultation: clear to auscultation bilaterally Cardio Jugular venous distension: no JVD Rate: regular rate Rhythm: regular rhythm Heart sounds: S1 normal heart sound present and S2 normal heart sound present Skin General skin exam: no rashes or lesions noted, elasticity normal and turgor normal Lesions: no lesions Rashes: no rashes Neuro General: patient oriented x3 Course Course Course Narrative: 31-year-old male with past medical history of migraine headaches, AKIN, pituitary micro adenoma, depressive disorder is here today for complaining of headache. Patient reports that his was seen here earlier for COVID like symptoms and tested positive for COVID-19. Patient states that he started having headache without fever, chills, SOB with or without exertion. Patient denies any other respiratory symptoms. History of pituitary microadenoma will be going for surgery to [place] this coming week. Pending COVID testing done in triage. Awaiting results for COVID-19. Patient looks comfortable. Dispo pending results. Reevaluation(s) Reevaluation #1: Results negative for COVID, flu, RSV. Patient will be discharged home. Patient will return if he will have any concerning symptoms. Patient is aware that he needs to isolate due to his tested positive for COVID and he is going for surgery in [place] this week Medical Decision Making Medical Decision Making Differential Diagnoses: Differential diagnosis (COVID-19, flu, RSV, viral illness) Lab Attestation: I reviewed the patient's lab results. Independent historian (e.g., spouse, EMS, friend): Independent historian (e.g., spouse, EMS, friend) Non-ED record review: Review of External (Non-ED) Record Discharge Plan Discharge Clinical Impression: Flu-like symptoms Patient Disposition: Home, Self-Care Instructions: Cold Symptoms (ED) Additional Instructions: David negativo para COVID-19, gripe, RSV. Aseg?rese de aislarse a s? mismo a pesar de los s?ntomas negativos debido a la exposici?n a COVID. Regrese al departamento de emergencias si princess s?ntomas empeoran o si tiene s?ntomas que empeoran. Prescriptions: No Action meloxicam 15 mg tablet 15 mg PO DAILY Qty: 14 0RF Referrals: Maggi Denny MD [Primary Care Provider] - Interventions: ED Discharge Assessment Last Done: 09/11/22 19:33 Discharge Date/Time: 09/11/22 19:34
[2022-09-11 18:28] LABS: Influenza A PCR NEGATIVE (Negative); Influenza B PCR NEGATIVE (Negative); Resp Syncy Virus RNA Qual PCR NEGATIVE (Negative); SARS COV2 PCR INHOUSE NEGATIVE (Negative)
== END 2022-09-11 19:34 | disposition home or self-care (01) ==
PROVIDERS: Emergency Provider Emergency Medicine Emergency Medical Services; PCP Internal Medicine
DX: R51.9 Headache, unspecified (principal); Z20.822 Contact with and (suspected) exposure to COVID-19; Z87.891 Personal history of nicotine dependence; D35.2 Benign neoplasm of pituitary gland
CPT/HCPCS: 0241U; 99282; 99283

== ENCOUNTER 2022-10-12 09:36 | Outpatient (REF) | payer OTHER, SELFPAY ==
[2022-10-12 15:19] LABS: Sodium 137 mmol/L (135-145)
[2022-10-12 16:29] LABS: Cortisol Random 9.6 ug/dL
== END 2022-10-12 09:37 | disposition home or self-care (01) ==
LOC: HO.HMGCLDS 09:36
PROVIDERS: PCP Internal Medicine; Visit Provider Internal Medicine Endocrinology, Diabetes & Metabolism
DX: D35.2 Benign neoplasm of pituitary gland (principal); D35.3 Benign neoplasm of craniopharyngeal duct
CPT/HCPCS: 36415; 82533; 84295

== ENCOUNTER 2022-10-14 10:18 | Outpatient (REF) | payer OTHER, SELFPAY ==
[2022-10-14 14:27] LABS: Sodium 137 mmol/L (135-145)
[2022-10-14 14:44] LABS: Cortisol Random 9.6 ug/dL
== END 2022-10-14 10:19 | disposition home or self-care (01) ==
LOC: HO.HMGCLDS 10:18
PROVIDERS: PCP Internal Medicine; Visit Provider Internal Medicine Endocrinology, Diabetes & Metabolism
DX: D35.2 Benign neoplasm of pituitary gland (principal); D35.3 Benign neoplasm of craniopharyngeal duct
CPT/HCPCS: 36415; 82533; 84295

== ENCOUNTER 2022-10-18 11:15 | Outpatient (REF) | payer OTHER, SELFPAY ==
[2022-10-18 14:15] LABS: Sodium 139 mmol/L (135-145)
[2022-10-18 14:29] LABS: Cholesterol 168 mg/dL; HDL Cholesterol 43 mg/dL; LDL Cholesterol Calculated 110 mg/dl; Triglycerides 78 mg/dL
[2022-10-18 14:35] LABS: Free T4 (Free Thyroxine) 1.02 ng/dL (0.71-1.85); Thyroid Stimulating Hormone 1.41 uIU/mL (0.32-4.0)
[2022-10-18 14:36] LABS: Cortisol Random 9.8 ug/dL
[2022-10-19 00:59] LABS: Thyroglobulin Antibodies <1 IU/mL (< or = 1); Thyroid Peroxidase Antibodies <1 IU/mL (<9)
== END 2022-10-18 11:16 | disposition home or self-care (01) ==
LOC: HO.HMGCLDS 11:15
PROVIDERS: PCP Internal Medicine; Visit Provider Internal Medicine Endocrinology, Diabetes & Metabolism
DX: Z00.00 Encounter for general adult medical examination without abnormal findings (principal); E78.5 Hyperlipidemia, unspecified; R79.89 Other specified abnormal findings of blood chemistry
CPT/HCPCS: 36415; 80061; 82533; 84295; 84439; 84443; 86376; 86800

== ENCOUNTER → 2023-01-25 13:59 | Outpatient (BNVA) | payer OTHER, SELFPAY | PROVIDERS: PCP Internal Medicine; Visit Provider Internal Medicine Endocrinology, Diabetes & Metabolism | DX: D35.2 Benign neoplasm of pituitary gland (principal) | CPT/HCPCS: 99212 ==

== ENCOUNTER 2023-02-07 09:02 | Outpatient (REF) | payer OTHER, SELFPAY ==
[2023-02-07 11:24] LABS: Cortisol Random 12.2 ug/dL
== END 2023-02-07 09:03 | disposition home or self-care (01) ==
LOC: HO.LAB 09:02
PROVIDERS: PCP Internal Medicine; Visit Provider Internal Medicine Endocrinology, Diabetes & Metabolism
DX: D35.2 Benign neoplasm of pituitary gland (principal)
CPT/HCPCS: 36415; 82533

== ENCOUNTER 2023-03-17 09:06 | Emergency (ER) | payer OTHER, SELFPAY ==
--- NOTE | ~2023-03-17 | XR_ITS ---
EXAMINATION: XR THORACIC SPINE CLINICAL INFORMATION: Upper back pain. COMPARISON: None available. TECHNIQUE: 3 views of the thoracic spine were obtained. FINDINGS: Alignment is anatomic. There are 12 rib-bearing thoracic vertebral bodies. Vertebral body heights and intervertebral disc spaces are maintained. There is no abnormality of the paraspinal soft tissues. XR/XR thoracic spine 3V IMPRESSION: Unremarkable examination.
[2023-03-17 09:45] VITALS: BP 118/80; PULSE 69; RESP 18; TEMP 36.6; O2SAT 98; BMI 22.7
--- NOTE | 2023-03-17 11:15 | ED.BACK ---
HPI - Back Pain/Injury General Chief Complaint: Back Pain/Injury Stated Complaint: back issues Time Seen by Provider: 03/17/23 11:13 Source: patient Limitations: no limitations History of Present Illness HPI Narrative: 32-year-old male complaining of midback pain. 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 Alloy a sharp pain in the middle of his spine. Pain increases with any flexion and standing and any range of motion really. Patient denies loss of bowel movements urine incontinence. Patient denies any falls or recent blunt trauma. Symptoms are moderate. Pain 7/10. Patient states pain was sometimes increased when lying down or getting up. No other complaints or concerns at this time. Related Data Previous Rx's Medication Instructions Recorded methocarbamol 750 mg tablet 750 mg PO TID PRN muscle spasm #20 03/17/23 tabs naproxen 500 mg tablet 500 mg PO BID PRN pain #20 tabs 03/17/23 Allergies Allergy/AdvReac Type Severity Reaction Status Date / Time No Known Allergies Allergy Verified 09/14/22 15:10 [No Known Allergies*] Review of Systems Review of Systems: General: No fever, no chills Cardiovascular: No chest pain, Respiratory: No dyspnea Muscle skeletal: Positive midback pain GI: no nausea vomiting, no diarrhea Skin: No rash PMFSH Past Medical History Medical History Abnormal TSH Alcoholism Anxiety Anxiety Blurry vision Daytime somnolence Family history of hypertension 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 Mild major depression, single episode Pituitary mass Surgical History No pertinent past surgical history Family History Family History Mother Thyroid disease Father Diabetes Hypertension Neuropathy Social History Social History Household Members: Significant Other Household Members Other:: SO and her two children Housing: Apartment Do you presently have visiting nurse or other home services: No Alcohol intake: current Alcohol intake frequency: a few times a week Alcohol type: beer Patient Tobacco Use Status: Never used Tobacco Tobacco use type: Cigarette Cigarettes Per Day: 10 Years Smoked: 14 e-Cigarette/Vaping Use: Never Used Second Hand Smoke Exposure: Yes Advance Directives: No service: No Current occupational status: unemployed Sexual orientation: Straight/Heterosexual Cognitive needs: No Hearing needs: No Vision needs: No Physical Exam Vital Signs: Vital Signs: Last Vital Signs Temp 97.8 F 03/17/23 09:45 Pulse 69 03/17/23 09:45 Resp 18 03/17/23 09:45 BP 118/80 03/17/23 09:45 Pulse Ox 98 03/17/23 09:45 BMI result Body Mass Index 22.7 General appearance: Awake, alert, cooperative, in no acute distress Skin: Warm, dry, no rash Eyes: PERRL, EOMI ENT: Oropharynx normal, uvula midline Neck: Soft supple full range of motion Pulmonary: Breath sounds clear to auscultation bilaterally, no accessory muscle use Cardiovascular: Regular rate and rhythm, no murmurs and rubs Abdomen: Soft nontender, no rebound or guarding, positive bowel sounds Extremities: Thoracic spine midline tenderness no ecchymosis or bruising noted in the back. Pain increases with range of motion Neuro: Alert oriented x3, no focal deficit Psych: Normal affect Course Course Course Narrative: Mid back strain Thoracic compression fracture Spinal stenosis Degenerative disc disease Scoliosis An otherwise healthy 32-year-old male complaining of mid back pain that is midline in nature. 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 Will get a thoracic spine at this time low suspicion for compression fracture at this time. Likely will treat patient with NSAIDs and Robaxin and follow-up closely with PCP X-ray thoracic spine is otherwise negative. Medical Decision Making Radiology Impression Discussion of test interpretation with radiology: I have reviewed the radiologist's reading. Radiologist Impression: [address] [id number] ReportSigned Patient: Felice CorreiaMR#: [id number]: [id number]:[id number]/Sex: 32 / MADM Date: 03/17/23Loc: [email or web address].EDAttending Dr: Ordering Physician: Quinton Isaacs Date of Service: 03/17/23 Procedure(s): XR thoracic spine 3V Accession Number(s): [id number] cc: Quinton Isaacs ~ EXAMINATION: XR THORACIC SPINE CLINICAL INFORMATION: Upper back pain. COMPARISON: None available. TECHNIQUE: 3 views of the thoracic spine were obtained. FINDINGS: Alignment is anatomic. There are 12 rib-bearing thoracic vertebral bodies. Vertebral body heights and intervertebral disc spaces are maintained. There is no abnormality of the paraspinal soft tissues. XR/XR thoracic spine 3V IMPRESSION: Unremarkable examination. Dictated By:Angelo Dinh MDSigned By:<Electronically signed by Angelo Dinh MD in [place]>03/17/23 1204 DD/ 1151TD/TT: [facility] [employer] Director: Discharge Plan Discharge Clinical Impression: Strain of mid-back Patient Disposition: Home, Self-Care Instructions: Muscle Strain (ED) Additional Instructions: X-ray back show no sign of compression fractures Symptoms likely secondary to muscle skeletal strain of the midback Medications as directed Return if symptoms worsen Prescriptions: New naproxen 500 mg tablet 500 mg PO BID PRN (Reason: pain) Qty: 20 0RF methocarbamol 750 mg tablet 750 mg PO TID PRN (Reason: muscle spasm) Qty: 20 0RF Stand Alone Forms: Work/School Release
== END 2023-03-17 12:31 | disposition home or self-care (01) ==
PROVIDERS: Emergency Provider Emergency Medicine; PCP Internal Medicine
DX: M54.50 Low back pain, unspecified (principal); F17.210 Nicotine dependence, cigarettes, uncomplicated; M54.6 Pain in thoracic spine; Z71.6 Tobacco abuse counseling
CPT/HCPCS: 72072; 99282; 99283

== ENCOUNTER 2023-03-24 08:58 | Outpatient (REF) | payer OTHER, SELFPAY ==
--- NOTE | ~2023-03-24 | MR_ITS ---
EXAMINATION: MR BRAIN WITHOUT AND WITH CONTRAST CLINICAL INFORMATION: Pituitary adenoma COMPARISON: MRI of the brain with and without contrast 07/01/2022 TECHNIQUE: Multiplanar multisequence MR imaging of the brain was obtained without and following the administration of 3.5 mL Gadavist intravenous contrast. FINDINGS: Postsurgical changes from transnasal/transsphenoidal gross total resection of a previously hypoenhancing sellar and suprasellar lesion with interval resolution of suprasellar extension of the sellar contents. Partially intrinsically T1 hyperintense and heterogeneously enhancement of the intrasellar contents may reflect a combination of fat packing material, residual pituitary gland, postoperative granulation tissue, and blood products. Normal contrast enhancement of the cavernous sinuses without evidence of intracavernous tumor. The cavernous carotid flow voids are maintained. Normal position and configuration of the optic chiasm. The pituitary infundibulum is midline. There is no acute infarct on diffusion-weighted imaging. There is no intracranial hemorrhage on iron-sensitive imaging. No extra-axial collection or mass effect/herniation. Normal parenchymal signal characteristics. No hydrocephalus. 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 No abnormal parenchymal or extra-axial enhancement. The major flow voids at the skull base are preserved. The cerebellar tonsils are normally positioned. The craniocervical junction is normal. Marrow signal is within normal limits. The visualized soft tissues are without significant abnormality. Mild ethmoid sinus mucosal thickening. MR/MR head/brain wo/w con IMPRESSION: Postsurgical changes from gross total resection of a sellar and suprasellar lesion with interval resolution of suprasellar extension. No evidence of residual/recurrent tumor.
== END 2023-03-24 08:59 | disposition home or self-care (01) ==
LOC: HO.MRI 08:58
PROVIDERS: PCP Internal Medicine; Visit Provider Internal Medicine Endocrinology, Diabetes & Metabolism
DX: D35.2 Benign neoplasm of pituitary gland (principal)
CPT/HCPCS: 70553; A9585

== ENCOUNTER 2023-07-26 13:42 | Outpatient (AMB) | payer OTHER, SELFPAY ==
[2023-07-26 13:52] VITALS: BP 118/68; PULSE 87; BMI 22.3
--- NOTE | 2023-07-26 13:52 | A.OFFVIS_ITS ---
Intake Vital Signs 07/26/23 13:52 Height 5 ft 7 in Weight 142 lb 3.17 oz BMI 22.3 BP 118/68 Blood Pressure Location Lt brachial Position Sitting Pulse 87 Pulse Source Pulse Oximeter Intake Visit Reasons: f/u S/P pitiuitary surgery Intake Note: Patient present for s/p pituitary surgery follow up visit. 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 Bonilla at [facility] on 10/07/22 . He was discharged on 5 mg of prednisone but this was stopped by Dr. Chung. No wt loss or sx of adrenal insufficency. Saw Dr. Bonilla . Recent a.m. cortisol level was normal.Feels fatigued . Some decreaed appetite. No problems with libido . 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, single episode Abnormal TSH Pituitary mass Daytime somnolence Family history of hypertension Alcoholism Anxiety Anxiety Surgical History History of pituitary surgery No pertinent past surgical history Family History Mother Thyroid disease Father Diabetes Hypertension Neuropathy Social History Household Members: Significant Other Household Members Other:: SO and her two children Housing: Apartment Do you presently have visiting nurse or other home services: No Alcohol intake: current Alcohol intake frequency: a few times a week Alcohol type: beer Patient Tobacco Use Status: Never used Tobacco Tobacco use type: Cigarette Cigarettes Per Day: 10 Years Smoked: 14 e-Cigarette/Vaping Use: Never Used Second Hand Smoke Exposure: Yes service: No Current occupational status: unemployed Sexual orientation: Straight/Heterosexual Cognitive needs: No Hearing needs: No Vision needs: No Physical Exam Vital Signs: Last Vital Signs Pulse 87 07/26/23 13:52 BP 118/68 07/26/23 13:52 BMI result Body Mass Index 22.3 Assessment & Plan Assessment & Plan (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 MRI shows no evid ence of persistence or recurrence of mass. Pituitary axis has been normal The plan is to reassess pituitary axis by checking TSH, free T4, a.m. cortisol, testosterone. I also told patient to report back pain symptoms to primary care provider and to call Dr. Bonilla's office if he continues to experience ?head pressure? Orders: Orders Free T4 (Free Thyroxine) 2 Days D35.2 - Benign neoplasm of pituitary gland Testosterone, Free/Total 2 Days D35.2 - Benign neoplasm of pituitary gland Basic Metabolic Panel 2 Days D35.2 - Benign neoplasm of pituitary gland Thyroid Stimulating Hormone 2 Days D35.2 - Benign neoplasm of pituitary gland Cortisol Random 2 Days D35.2 - Benign neoplasm of pituitary gland Coding Level of Care Code Est Pt Level 3 (10405) Diagnoses Pituitary macroadenoma D35.2
== END 2023-07-26 14:17 | disposition home or self-care (01) ==
PROVIDERS: PCP Internal Medicine; Visit Provider Internal Medicine Endocrinology, Diabetes & Metabolism
DX: D35.2 Benign neoplasm of pituitary gland (principal)
CPT/HCPCS: 99213

== ENCOUNTER → 2023-07-26 13:42 | Outpatient (BNVA) | payer OTHER, SELFPAY | PROVIDERS: Visit Provider Internal Medicine Endocrinology, Diabetes & Metabolism | DX: D35.2 Benign neoplasm of pituitary gland (principal); E23.6 Other disorders of pituitary gland; Z48.3 Aftercare following surgery for neoplasm | CPT/HCPCS: 99212 ==

== ENCOUNTER 2023-08-04 07:44 | Outpatient (REF) | payer OTHER, SELFPAY ==
[2023-08-04 09:31] LABS: Anion Gap 9 (12-20); Blood Urea Nitrogen 10 mg/dL (9-16); Calcium 9.7 mg/dL (8.4-10.2); Carbon Dioxide 26 mmol/L (22-29); Chloride 109 mmol/L (96-108); Estimated Glomerular Filt Rate > 60; Glucose Random 92 mg/dL (60-115); Potassium 3.7 mmol/L (3.3-5.1); Sodium 140 mmol/L (135-145)
[2023-08-04 09:44] LABS: Cortisol Random 15.3 ug/dL
[2023-08-04 09:51] LABS: Free T4 (Free Thyroxine) 0.87 ng/dL (0.71-1.85); Thyroid Stimulating Hormone 2.38 uIU/mL (0.32-4.0)
[2023-08-08 16:52] LABS: Testosterone, Free 125.2 pg/mL (35.0-155.0); Testosterone, Total 818 ng/dL (250-1100)
== END 2023-08-04 07:45 | disposition home or self-care (01) ==
LOC: HO.LAB 07:44
PROVIDERS: PCP Internal Medicine; Visit Provider Internal Medicine Endocrinology, Diabetes & Metabolism
DX: D35.2 Benign neoplasm of pituitary gland (principal)
CPT/HCPCS: 36415; 80048; 82533; 84402; 84403; 84439; 84443

== ENCOUNTER 2023-09-22 08:23 | Outpatient (AMB) | payer OTHER, SELFPAY ==
--- NOTE | 2023-09-22 08:27 | A.OFFPC_ITS ---
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 Lasting Required: No Accompanied by: Self / Same As Patient Allergies No Known Allergies [No Known Allergies*] Allergy (Verified 09/22/23 08:43) Medication List - Last Reconciled 09/22/23 by Maggi Giraldo MD No Known Home Meds Tobacco use date assessed: 09/22/23 Dental Screening Dental Screen Date: 09/22/23 Did you have a dental visit in the last 12 months?: Yes Did you have a dental problem in the last 6 months where you did not have access to dental care?: No Was dental information given to patient?: Patient has dentist HPI HPI Comments History of Present Illness Details This is a 32-year-old male that comes for his physical exam. No chest pain or shortness of breath. No changes in vision. Complains of left arm paresthesias that started few weeks ago. 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, single episode Abnormal TSH Pituitary mass Daytime somnolence Family history of hypertension Alcoholism Anxiety Anxiety Surgical History History of pituitary surgery Family History Mother Thyroid disease Father Diabetes Hypertension Neuropathy Social History Household Members: Significant Other Household Members Other:: SO and her two children Housing: Apartment Do you presently have visiting nurse or other home services: No Alcohol intake: current Alcohol intake frequency: a few times a week Alcohol type: beer Patient Tobacco Use Status: Current everyday Tobacco user Tobacco use type: Cigarette Cigarettes Per Day: 10 Years Smoked: 14 e-Cigarette/Vaping Use: Never Used Second Hand Smoke Exposure: Yes service: No Current occupational status: unemployed Sexual orientation: Straight/Heterosexual Cognitive needs: No Hearing needs: No Vision needs: No Questionnaire PHQ-9 Over the last 2 weeks, how often have you been bothered by any of the following problems? 1. Little interest or pleasure in doing things: not at all 2. Feeling down, depressed, or hopeless: not at all 3. Trouble falling or staying asleep, or sleeping too much: not at all 4. Feeling tired or having little energy: not at all 5. Poor appetite or overeating: not at all 6. Feeling bad about yourself - or that you are a failure or have let yourself or your family down: not at all 7. Trouble concentrating on things, such as reading the newspaper or watching t elevision: not at all 8. Moving or speaking so slowly that other people could have noticed. Or the opposite - being so fidgety or restless that you have been moving around a lot more than usual: not at all 9. Thoughts that you would be better off or of hurting yourself in some way: not at all Total score: 0 Depression Screening Interpretation: Negative Depression Screening Done: Yes 20778 - PHQ-9 Billing: Yes Source: Developed by Drs. Yoni Caldwell, Marcia Parmar, Ru Evans and colleagues, with an educational lisa from [employer]. Thrive Questionnaire Date Thrive assessed: 09/22/23 I am a: Patient What is your living situation today?: I have a steady place to live Within the past 12 months, did the food you bought not last and you didn't have the money to get more?: Never true Within the past 12 months, did you worry whether your food would run out before you got money to buy more?: Never true Do you have trouble paying for medicines?: No Do you have trouble getting transportation to medical appointments?: No Do you have trouble paying your heating and electricity bill?: No Do you have trouble taking care of your child, family member or friend?: No Do you have trouble with day-to-day activities such as bathing, preparing meals, shopping, managing finances, etc.?: No Are you currently unemployed and looking for a job?: No Are you interested in more education?: No Please select the resources that you would like help with: None Currently or been in a relationship where the following occur: no concerns reported AUDIT C Alcohol Use Questionnaire (AUDIT-C) 1. How often do you have a drink containing alcohol?: Monthly or less 2. How many drinks containing alcohol do you have on a typical day when you are drinking?: 1 or 2 3. How often do you have six or more drinks on one occasion?: Never Total Score: 1 Score Reviewed/Action Taken: No CEM-7 AMB Questionnaire CEM-7 Date CEM - 7 assessed: 09/22/23 Feeling nervous, anxious, or on edge: 0 = Not at all Not being able to stop or control worryin = Not at all Worrying too much about different things: 0 = Not at all Trouble relaxin = Not at all Being so restless that it is hard to sit still: 0 = Not at all Becoming easily annoyed or irritable: 0 = Not at all Feeling afraid as if something awful might happen: 0 = Not at all Total CEM-7 score (0-4 normal; 5-9 mild; 10-14 moderate; 15-21 severe): 0 Source: Developed by Drs. Yoni Caldwell, Marcia Parmar, Ru Evans and colleagues, with an educational lisa from [employer]. CEM-7 Assessment Billing CEM-7 Assessment Tool: CEM-7 Assessment 80777 Review of Systems Const All systems reviewed & are unremarkable except as noted in HPI and below Eyes Reports no additional complaints, Denies change in vision and Denies other visual disturbances Card Denies chest pain at rest, Denies chest pain with activity, Denies edema, Denies irregular heart rhythm, Denies claudication, Denies dyspnea, Denies dyspnea on exertion, Denies orthopnea, Denies paroxysmal nocturnal dyspnea and Denies slow heart rate Resp Denies cough, Denies dyspnea and Denies dyspnea on exertion GI Denies abdominal pain, Denies change in bowel habits, Denies excessive flatus, Denies nausea and Denies vomiting Denies urinary hesitancy, Denies urinary incontinence and Denies urinary urgency Musc Denies abnormal gait, Denies atrophy, Denies deformity and Denies limited range of motion Skin/Breast Denies bleeding lesions, Denies changing lesions and Denies rash Neuro Denies abnormal gait, Denies behavioral changes, Denies confusion and Denies lack of coordination Psych Denies behavioral changes and Denies confusion Physical exam (Primary Care) Vital Signs: Last Vital Signs BP 120/80 09/22/23 08:28 BMI result Body Mass Index 21.5 Tobacco/Smoking Status: Tobacco use Status Tobacco use date assessed 09/22/23 09/22/23 08:33 Patient Tobacco Use Status Current everyday Tobacco 09/22/23 08:33 Tobacco use type Cigarette 09/22/23 08:33 e-Cigarette/Vaping Use Never Used 09/22/23 08:33 PHQ-9: PHQ-9 Score PHQ-9: Total score 0 09/22/23 08:33 Depression Screening Interpretation: Negative Thrive Assessment: Date of Thrive Assessment Date Thrive assessed 09/22/23 12 08:33 Currently or been in a relationship where the following occur: no concerns reported Const General: No confusion Orientation/consciousness: patient oriented x3 and No confusion HENMT Head: Yes normal to inspection, Yes normocephalic and Yes atraumatic Ears: external ears normal General nose exam: Normal external nose present and No nasal discharge present Face and sinus: Yes sinuses nontender Mouth: lip normal Eyes General: appearance normal, both eyes and all related structures Eyelids: Yes eyelids normal Conjunctivae: conjunctivae normal Neck Neck: Yes normal visual inspection and Yes supple Resp Effort & Inspection: normal respiratory effort Auscultation: clear to auscultation bilaterally Cardio Jugular venous distension: no JVD Rate: regular rate Rhythm: regular rhythm Heart sounds: S1 normal heart sound present and S2 normal heart sound present GI Inspection: Yes normal to inspection Palpation (GI): Soft to palpation and nontender Auscultation: normal bowel sounds Skin General skin exam: no rashes or lesions noted Neuro General: patient oriented x3, no focal motor deficits and No confusion Extrem General: Yes full ROM Psych Appearance: grossly normal Office Procedures Flu Questionnaire Does the patient have a severe egg allergy?: No Immunizations flu vacc [id number] 6mos up(PF) 60 mcg(15 mcgx4)/0.5 mL IM syringe Performing Provider: Maggi Giraldo MD [facility] Documented (not given) by: BEE Grijalva on 09/22/23 08:35 Reason Not Given: Patient Refused Assessment and Plan Assessment & Plan (1) Physical exam: Code(s): Z00.00 - Encounter for general adult medical examination without abnormal findings Plan: Repeat in a nyear. Orders: Orders Influenza [id number] Immunization Today Z23 - Encounter for immunization NE nerve conduction velocity Today R20.2 - Paresthesia of skin Coding Level of Care Code Est Pt Prev Care 18-39y(06785) Diagnoses Physical exam Z00.00 Additional Codes CEM-7 Assessment Billing - CEM-7 Assessment Tool: CEM-7 Assessment 10795 ([id number]) Time Spent (min) 31
[2023-09-22 08:28] VITALS: BP 120/80; BMI 21.5
== END 2023-09-22 09:00 | disposition home or self-care (01) ==
PROVIDERS: Visit Provider Internal Medicine
DX: Z00.00 Encounter for general adult medical examination without abnormal findings (principal)
CPT/HCPCS: 99395

== ENCOUNTER 2023-10-13 09:01 | Outpatient (REF) | payer OTHER, SELFPAY ==
--- NOTE | 2023-10-13 09:04 | EMG_ITS ---
Bilateral median and ulnar motor and sensory studies were performed. Bilateral radial sensory studies were performed and paraspinal muscles were tested. IMPRESSION: Mild bilateral ulnar neuropathy across cubital tunnel. There was no evidence of median neuropathy. MD TODD Berrios/ELIZABETH / [phone]
== END 2023-10-13 09:02 | disposition home or self-care (01) ==
LOC: HO.NEURO 09:01
PROVIDERS: PCP Internal Medicine; Visit Provider Internal Medicine
DX: R20.2 Paresthesia of skin (principal)
CPT/HCPCS: 95886; 95911

== ENCOUNTER 2024-01-25 13:51 | Outpatient (AMB) | payer SELFPAY ==
[2024-01-25 13:54] VITALS: BP 110/68; PULSE 88; BMI 22.2
--- NOTE | 2024-01-25 13:54 | MHC.OFFVIS ---
Vital Signs 01/25/24 13:54 Height 5 ft 7 in Weight 141 lb 8.588 oz BMI 22.2 BP 110/68 Blood Pressure Location Rt brachial Position Sitting Pulse 88 Pulse Source Pulse Oximeter Intake Visit Reasons: f/u pituitary surgery Intake Note: Patient present today for pituitary surgery follow up visit. 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 Bonilla at [facility] on 10/07/22 . He was discharged on 5 mg of prednisone but this was stopped by Dr. Chung. No wt loss or sx of adrenal insufficency. Saw Dr. Bonilla . No problems with libido . 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 major depression, single episode Abnormal TSH Pituitary mass Daytime somnolence Family history of hypertension Alcoholism Anxiety Anxiety Surgical History (Updated 01/25/24 @ 14:01 by Yoni Sotomayor MD) Status post selective transsphenoidal pituitary adenomectomy History of pituitary surgery Family History Mother Thyroid disease Father Diabetes Hypertension Neuropathy Social History Household Members: Significant Other Household Members Other:: SO and her two children Housing: Apartment Do you presently have visiting nurse or other home services: No Alcohol intake: current Alcohol intake frequency: a few times a week Alcohol type: beer Patient Tobacco Use Status: Current everyday Tobacco user Tobacco use type: Cigarette Cigarettes Per Day: 10 Years Smoked: 14 e-Cigarette/Vaping Use: Never Used Second Hand Smoke Exposure: Yes service: No Current occupational status: unemployed Sexual orientation: Straight/Heterosexual Cognitive needs: No Hearing needs: No Vision needs: No Physical Exam Vital Signs: Last Vital Signs Pulse 88 01/25/24 13:54 BP 110/68 01/25/24 13:54 BMI result Body Mass Index 22.2 Const Other: . 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 MRI shows no evidence of persistence or recurrence of mass. Pituitary axis has been normal The plan is to reassess pituitary axis by checking TSH, free T4, a.m. cortisol, testosterone. I will also repeat an MRI of the pituitary because he continues to experience ?head pressure? to rule out recurrence of the mass. Orders: Orders Basic Metabolic Panel Today Z86.018 - Personal history of other benign neoplasm, Z98.890 - Other specified postprocedural states Thyroid Stimulating Hormone Today Z86.018 - Personal history of other benign neoplasm, Z98.890 - Other specified postprocedural states MR head/brain wo/w con Today Z86.018 - Personal history of other benign neoplasm, Z98.890 - Other specified postprocedural states Free T4 (Free Thyroxine) Today Z86.018 - Personal history of other benign neoplasm, Z98.890 - Other specified postprocedural states Cortisol Random Today Z86.018 - Personal history of other benign neoplasm, Z98.890 - Other specified postprocedural states Testosterone, Free/Total Today Z86.018 - Personal history of other benign neoplasm, Z98.890 - Other specified postprocedural states Coding Level of Care Code Est Pt Level 3 (61726) Diagnoses Status post selective transsphenoidal pituitary adenomectomy Z98.890; Z86.018 Pituitary macroadenoma D35.2
== END 2024-01-25 14:12 | disposition home or self-care (01) ==
PROVIDERS: PCP Internal Medicine; Visit Provider Internal Medicine Endocrinology, Diabetes & Metabolism
DX: Z98.890 Other specified postprocedural states (principal); Z86.018 Personal history of other benign neoplasm; D35.2 Benign neoplasm of pituitary gland
CPT/HCPCS: 99213

== ENCOUNTER → 2024-01-25 13:51 | Outpatient (BNVA) | payer OTHER, SELFPAY | PROVIDERS: PCP Internal Medicine; Visit Provider Internal Medicine Endocrinology, Diabetes & Metabolism | DX: D35.2 Benign neoplasm of pituitary gland (principal); Z98.890 Other specified postprocedural states; Z86.018 Personal history of other benign neoplasm | CPT/HCPCS: 99212 ==

== ENCOUNTER 2024-07-26 10:57 | Outpatient (AMB) | payer MEDICAID, SELFPAY ==
[2024-07-26 11:24] VITALS: BP 102/68; PULSE 73; BMI 23.1
--- NOTE | 2024-07-26 11:24 | MHC.OFFVIS ---
Vital Signs 07/26/24 11:24 Height 5 ft 7 in Weight 147 lb 11.355 oz BMI 23.1 BP 102/68 Blood Pressure Location Lt brachial Position Sitting Pulse 73 Pulse Source Pulse Oximeter Intake Visit Reasons: f/u pituitary surgery Intake Note: Patient present today for follow up to pituitary surgery. 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 Bonilla at [facility] on 10/07/22 . He was discharged on 5 mg of prednisone but this was stopped by Dr. Chung. No wt loss or sx of adrenal insufficency. Saw Dr. Bonilla . No problems with libido . 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 depression, single episode Abnormal TSH Pituitary mass Daytime somnolence Family history of hypertension Alcoholism Anxiety Anxiety Surgical History (Updated 01/25/24 @ 14:01 by Yoni Sotomayor MD) Status post selective transsphenoidal pituitary adenomectomy History of pituitary surgery Family History Mother Thyroid disease Father Diabetes Hypertension Neuropathy Social History Household Members: Significant Other Household Members Other:: SO and her two children Housing: Apartment Do you presently have visiting nurse or other home services: No Alcohol intake: current Alcohol intake frequency: a few times a week Alcohol type: beer Patient Tobacco Use Status: Current everyday Tobacco user Tobacco use type: Cigarette Cigarettes Per Day: 10 Years Smoked: 14 e-Cigarette/Vaping Use: Never Used Second Hand Smoke Exposure: Yes service: No Current occupational status: unemployed Sexual orientation: Straight/Heterosexual Cognitive needs: No Hearing needs: No Vision needs: No Physical Exam Vital Signs: Last Vital Signs Pulse 73 10/24/24 11:24 BP 102/68 07/26/24 11:24 BMI result Body Mass Index 23.1 Assessment & Plan Assessment & Plan (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 MRI shows no evidence of persistence or recurrence of mass. Pituitary axis has been normal The plan is to reassess pituitary axis by checking TSH, free T4, a.m. cortisol, testosterone. I will also repeat an MRI of the pituitary because he continues to experience ?head pressure? and visual changes to rule out recurrence of the mass. Coding Level of Care Code Est Pt Level 3 (55005) Diagnoses Pituitary macroadenoma D35.2
== END 2024-07-26 11:39 | disposition home or self-care (01) ==
PROVIDERS: PCP Internal Medicine; Visit Provider Internal Medicine Endocrinology, Diabetes & Metabolism
DX: D35.2 Benign neoplasm of pituitary gland (principal)
CPT/HCPCS: 99213

== ENCOUNTER → 2024-07-26 10:57 | Outpatient (BNVA) | payer MEDICAID, SELFPAY | PROVIDERS: PCP Internal Medicine; Visit Provider Internal Medicine Endocrinology, Diabetes & Metabolism | DX: D35.2 Benign neoplasm of pituitary gland (principal); Z98.890 Other specified postprocedural states | CPT/HCPCS: 99212 ==

== ENCOUNTER 2024-07-30 11:07 | Outpatient (REF) | payer MEDICAID, SELFPAY ==
[2024-07-30 13:02] LABS: Anion Gap 6 (12-20); Blood Urea Nitrogen 15 mg/dL (9-16); Calcium 9.9 mg/dL (8.4-10.2); Carbon Dioxide 29 mmol/L (22-29); Chloride 107 mmol/L (96-108); Estimated Glomerular Filt Rate > 60; Glucose Random 85 mg/dL (60-115); Sodium 138 mmol/L (135-145)
[2024-07-30 13:14] LABS: Cortisol Random 6.5 ug/dL
[2024-07-30 13:26] LABS: Free T4 (Free Thyroxine) 0.97 ng/dL (0.71-1.85)
[2024-08-05 14:44] LABS: Testosterone, Free 80.9 pg/mL (35.0-155.0); Testosterone, Total 817 ng/dL (250-1100)
== END 2024-07-30 11:08 | disposition home or self-care (01) ==
LOC: HO.LAB 11:07
PROVIDERS: PCP Internal Medicine; Visit Provider Internal Medicine Endocrinology, Diabetes & Metabolism
DX: Z98.890 Other specified postprocedural states (principal); Z86.018 Personal history of other benign neoplasm
CPT/HCPCS: 36415; 80048; 82533; 84402; 84403; 84439; 84443

== ENCOUNTER 2024-08-21 07:14 | Outpatient (RCR) | payer MEDICAID, SELFPAY ==
[2024-08-21 07:18] VITALS: BP 117/77; PULSE 84; RESP 16; TEMP 36.9; O2SAT 98
[2024-08-21] MEDS: Cosyntropin 0.25 MG VIAL IVPUSH (07:54)
[2024-08-22 07:33] LABS: Cortisol 60 Minute 41.7 mcg/dL; Cortisol Baseline 11.6 mcg/dL
== END 2024-08-21 09:15 | disposition home or self-care (01) ==
LOC: HO.INF 07:14
PROVIDERS: Visit Provider Internal Medicine Endocrinology, Diabetes & Metabolism
DX: E27.40 Unspecified adrenocortical insufficiency (principal)
CPT/HCPCS: 36415; 82533; 96374; J0834

== ENCOUNTER 2024-12-26 12:18 | Outpatient (AMB) | payer OTHER, SELFPAY ==
--- NOTE | 2024-12-26 12:28 | MHC.PC.OV ---
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 Accompanied by: Self / Same As Patient Allergies No Known Allergies [No Known Allergies*] Allergy (Verified 12/26/24 12:44) Medication List - Last Reconciled 12/26/24 by Maggi iGraldo MD No Known Home Meds Tobacco use date assessed: 12/26/24 Dental Screening Dental Screen Date: 12/26/24 Did you have a dental visit in the last 12 months?: No Did you have a dental problem in the last 6 months where you did not have access to dental care?: No Was dental information given to patient?: Patient has dentist HPI HPI Comments History of Present Illness Details The patient is a 34-year-old male presenting with chest pain. The pain is described as pressure-like and is located under the rib on the left side. It is triggered mostly when sitting, with no correlation to eating. The patient denies experiencing heartburn or any palpitations and has not noticed any exertional or postprandial relation to the chest discomfort. He also complains of dizziness associated with change in head position most likely due to benign paroxysmal positional vertigo and I will prescribe meclizine as needed. 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 He?s free from medication allergies and does not take regular medications. Family history includes thyroid disease in his mother and diabetes, hypertension, and neuropathy in his father. Socially, he has ceased alcohol consumption and reports occasional tobacco use, smoking approximately 7-8 cigarettes daily. He is considering quitting smoking. Depression has been minimal, a condition that improved with cessation of caffeine intake. - Tetanus vaccine booster is due next year. - Recommending fasting labs for cholesterol, glucose, renal and liver function due to outdated results. - Smoking cessation encouraged. 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, single episode Abnormal TSH Pituitary mass Daytime somnolence Family history of hypertension Alcoholism Anxiety Anxiety Surgical History Status post selective transsphenoidal pituitary adenomectomy History of pituitary surgery Family History Mother Thyroid disease Father Diabetes Hypertension Neuropathy Social History (Updated 12/26/24 @ 12:49 by Maggi Giraldo MD) Household Members: Significant Other Household Members Other:: SO and her two children Housing: Apartment Do you presently have visiting nurse or other home services: No Alcohol intake: former Patient Tobacco Use Status: Current everyday Tobacco user Tobacco use type: Cigarette Cigarettes Per Day: 8 Years Smoked: 14 e-Cigarette/Vaping Use: Never Used Second Hand Smoke Exposure: Yes service: No Current occupational status: unemployed Sexual orientation: Straight/Heterosexual Cognitive needs: No Hearing needs: No Vision needs: No Questionnaire PHQ-9 Over the last 2 weeks, how often have you been bothered by any of the following problems? 1. Little interest or pleasure in doing things: not at all 2. Feeling down, depressed, or hopeless: not at all 3. Trouble falling or staying asleep, or sleeping too much: several days 4. Feeling tired or having little energy: several days 5. Poor appetite or overeating: not at all 6. Feeling bad about yourself - or that you are a failure or have let yourself or your family down: not at all 7. Trouble concentrating on things, such as reading the newspaper or watching television: not at all 8. Moving or speaking so slowly that other people could have noticed. Or the opposite - being so fidgety or restless that you have been moving around a lot more than usual: not at all 9. Thoughts that you would be better off or of hurting yourself in some way: not at all Total score: 2 Depression Screening Interpretation: Positive Depression Screening Follow-up: Existing condition and Follow-up Visit Requested Depression Screening Done: Yes 70493 - PHQ-9 Billing: Yes Source: Developed by Drs. Yoni Caldwell, Marcia Parmar, Ru Evans and colleagues, with an educational lisa from [employer]. Thrive Questionnaire Date Thrive assessed: 12/26/24 I am a: Patient What is your living situation today?: I have a steady place to live Within the past 12 months, did the food you bought not last and you didn't have the money to get more?: Never true Within the past 12 months, did you worry whether your food would run out before you got money to buy more?: Never true Do you have trouble paying for medicines?: I choose not to answer this question Do you have trouble getting transportation to medical appointments?: I choose not to answer this question Do you have trouble paying your heating and electricity bill?: I choose not to answer this question Do you have trouble taking care of your child, family member or friend?: I choose not to answer this question Do you have trouble with day-to-day activities such as bathing, preparing meals, shopping, managing finances, etc.?: I choose not to answer this question Are you currently unemployed and looking for a job?: No Are you interested in more education?: I choose not to answer this question Please select the resources that you would like help with: None Currently or been in a relationship where the following occur: I choose not to answer THRIVE Score: 0 AUDIT C Alcohol Use Questionnaire (AUDIT-C) 1. How often do you have a drink containing alcohol?: Never Total Score: 0 Score Reviewed/Action Taken: No CEM-7 AMB Questionnaire CEM-7 Date CEM - 7 assessed: 12/26/24 Feeling nervous, anxious, or on edge: 0 = Not at all Not being able to stop or control worryin = Not at all Worrying too much about different things: 1 = Several days Trouble relaxin = Not at all Being so restless that it is hard to sit still: 0 = Not at all Becoming easily annoyed or irritable: 1 = Several days Feeling afraid as if something awful might happen: 0 = Not at all Total CEM-7 score (0-4 normal; 5-9 mild; 10-14 moderate; 15-21 severe): 2 Source: Developed by Drs. Yoni Caldwell, Marcia Parmar, Ru Evans and colleagues, with an educational lisa from [employer]. CEM-7 Assessment Billing CEM-7 Assessment Tool: CEM-7 Assessment 52170 Review of Systems Const All systems reviewed & are unremarkable except as noted in HPI and below ENT Reports vertigo and Reports dizziness Card Denies chest pain at rest, Denies chest pain with activity, Denies edema, Denies irregular heart rhythm, Denies claudication, Denies dyspnea, Denies dyspnea on exertion, Denies orthopnea, Denies paroxysmal nocturnal dyspnea and Denies slow heart rate Resp Denies cough, Denies dyspnea and Denies dyspnea on exertion Neuro Reports vertigo and Reports dizziness Physical exam (Primary Care) Vital Signs: Last Vital Signs BP 132/74 12/26/24 12:32 BMI result Body Mass Index 23.5 Tobacco/Smoking Status: Tobacco use Status Tobacco use date assessed 12/26/24 12/26/24 12:41 Patient Tobacco Use Status Current everyday Tobacco 12/26/24 12:36 Tobacco use type Cigarette 12/26/24 12:36 e-Cigarette/Vaping Use Never Used 12/26/24 12:36 PHQ-9: PHQ-9 Score PHQ-9: Total score 2 12/26/24 12:36 Depression Screening Interpretation: Positive Depression Screening Follow-up: Existing condition and Follow-up Visit Requested Thrive Assessment: Date of Thrive Assessment Date Thrive assessed 12/26/24 12/26/24 12:36 Currently or been in a relationship where the following occur: I choose not to answer HENMT Head: Yes normal to inspection, Yes normocephalic and Yes atraumatic Ears: external ears normal Eyes General: appearance normal, both eyes and all related structures Eyelids: Yes eyelids normal Conjunctivae: conjunctivae normal Neck Neck: Yes normal visual inspection and Yes supple Resp Effort & Inspection: normal respiratory effort Auscultation: clear to auscultation bilaterally Cardio Jugular venous distension: no JVD Rate: regular rate Rhythm: regular rhythm Heart sounds: S1 normal heart sound present and S2 normal heart sound present GI Inspection: Yes normal to inspection Palpation (GI): Soft to palpation and nontender Auscultation: normal bowel sounds Skin General skin exam: no rashes or lesions noted Neuro General: no focal motor deficits Extrem General: Yes full ROM Psych Appearance: grossly normal Coding Level of Care Code Est Pt Level 3 (41140) Est Pt Prev Care 18-39y(14625) Diagnoses Physical exam Z00.00 Ear itch L29.9 Chest pain R07.9 BPPV (benign paroxysmal positional vertigo) H81.10 Additional Codes PHQ-9 - 57009 - PHQ-9 Billing: Yes ([id number]) CEM-7 Assessment Billing - CEM-7 Assessment Tool: CEM-7 Assessment 53460 ([id number]) Time Spent (min) 32 Assessment & Plan Assessment & Plan (1) Physical exam: Code(s): Z00.00 - Encounter for general adult medical examination without abnormal findings Category: Medical (2) Ear itch: Code(s): L29.9 - Pruritus, unspecified Category: Medical (3) Chest pain: Code(s): R07.9 - Chest pain, unspecified Category: Medical (4) BPPV (benign paroxysmal positional vertigo): Code(s): H81.10 - Benign paroxysmal vertigo, unspecified ear Category: Medical Plan The patient will undergo an electrocardiogram and possibly a chest X-ray to assess the origin of chest pain near the heart. Fasting blood work for cholesterol, glucose, and renal and liver function is advised since prior results are outdated. Smoking cessation strategies will be discussed to support his decision to quit. He will receive a tetanus booster next year in line with vaccination scheduling. Patient was informed and verbally consented to the use of an ambient scribe for clinic note documentation during this visit. I discussed the details of obtaining an ECG and possibly a chest X-ray to evaluate the source and nature of his chest pain. We reviewed the importance of smoking cessation, especially in light of his current usage and his decision to quit. I recommended fasting blood work for lipid profile, glucose, renal, and liver function, given that prior labs are significantly outdated. We also planned for a tetanus booster next year. I reassured the patient regarding his minimal depression symptoms and associated mood benefits following the cessation of caffeine. Orders: Orders Lipid Panel Today E78.5 - Hyperlipidemia, unspecified, Z00.00 - Encounter for general adult medical examination without abnormal findings Comprehensive [place]. Panel Fast Today Z00.00 - Encounter for general adult medical examination without abnormal findings T Spot TB Today Z11.1 - Encounter for screening for respiratory tuberculosis XR chest 1V Today R07.9 - Chest pain, unspecified ECG 12 lead EKG Today R07.9 - Chest pain, unspecified Medications: New meclizine 25 mg PO BID 7 days PRN 14 tabs 0RF dizziness H81.10 - Benign paroxysmal vertigo, unspecified ear fluocinolone acetonide oil 0.01% (DermOtic Oil) 5 drps otic (ear) right BID 7 days 20 mL 0RF L29.9 - Pruritus, unspecified Patient Instructions: - Undergo an electrocardiogram as advised. - Follow up on smoking cessation strategies. - Prepare for fasting labs for cholesterol and glucose checks. - Plan to receive a tetanus booster the following year. - Return for follow-up based on results from the ECG and lab tests.
[2024-12-26 12:32] VITALS: BP 132/74; BMI 23.5
== END 2024-12-26 12:57 | disposition home or self-care (01) ==
LOC: HO.HMCH 12:19
PROVIDERS: PCP Internal Medicine; Visit Provider Internal Medicine
DX: Z00.00 Encounter for general adult medical examination without abnormal findings (principal); L29.9 Pruritus, unspecified; R07.9 Chest pain, unspecified; H81.10 Benign paroxysmal vertigo, unspecified ear

== ENCOUNTER → 2024-12-26 12:18 | Outpatient (BNVA) | payer OTHER, SELFPAY | PROVIDERS: PCP Internal Medicine; Visit Provider Internal Medicine | DX: Z00.00 Encounter for general adult medical examination without abnormal findings (principal); L29.9 Pruritus, unspecified; R07.9 Chest pain, unspecified; H81.10 Benign paroxysmal vertigo, unspecified ear | CPT/HCPCS: 96127; 99212; 99395 ==

== ENCOUNTER → 2025-01-05 13:13 | Outpatient (BNV) | payer OTHER, SELFPAY | PROVIDERS: PCP Internal Medicine; Visit Provider Radiology Diagnostic Radiology | DX: E23.6 Other disorders of pituitary gland (principal) | CPT/HCPCS: 70553 ==

== ENCOUNTER 2025-01-05 13:14 | Outpatient (REF) | payer OTHER, SELFPAY ==
--- NOTE | ~2025-01-05 | MR_ITS ---
EXAMINATION: MR BRAIN /PITUITARY PROTOCOL WITHOUT AND WITH CONTRAST CLINICAL INFORMATION: Postprocedural states. COMPARISON: March 24, 2023. February 23, 2022.. TECHNIQUE: Multiplanar, multisequence MRI of the brain/ pituitary protocol was obtained before and after the intravenous administration of 3.2 mL gadolinium based without reported immediate complications. FINDINGS: There is a 12 x 9 x 6 mm intrinsic hyperintense T1 nonenhancing signal within the anterior sella. The proper residual pituitary gland is to the posterior aspect of the sella turcica. The pituitary stalk is midline and measures 2 mm in maximal thickness. The optic chiasm is intact with normal signal. No enhancing lesion within the sellar suprasellar region. There are flow-void signal within the petrous cavernous and supraclinoid segments of the ICA. No enhancing lesion within the cavernous sinuses. No restricted diffusion. No acute intracranial hemorrhage, mass effect, midline shift, hydrocephalus or herniation. There is asymmetric prominent left lateral ventricle likely congenital. Ha-white matter differentiation is normal. Posterior cranial fossa contents demonstrated no signal abnormality or masses. Craniocervical junction is intact and normal. MR/MR head/brain wo/w con IMPRESSION: No residual or recurrent mass. Post surgical changes including sella turcica. Electronically signed by: Bhavin Denny MD 01/07/2025 07:53 AM EDT
[2025-01-05] MEDS: gadobutroL 7.5 ML VIAL IVPUSH (14:10)
== END 2025-01-05 13:15 | disposition home or self-care (01) ==
LOC: HO.MRI 13:14
PROVIDERS: PCP Internal Medicine; Visit Provider Internal Medicine Endocrinology, Diabetes & Metabolism
DX: Z98.890 Other specified postprocedural states (principal); Z86.018 Personal history of other benign neoplasm
CPT/HCPCS: 70553; A9585

== ENCOUNTER 2025-01-14 11:34 | Outpatient (AMB) | payer OTHER, SELFPAY ==
--- NOTE | 2025-01-14 11:36 | A.OFFVIS_ITS ---
Vital Signs 01/14/25 11:37 Height 5 ft 7 in Weight 150 lb 2.157 oz BMI 23.5 BP 104/72 Blood Pressure Location Rt brachial Position Sitting Pulse 100 Pulse Source Pulse Oximeter Pulse Oximetry (%) 97 Oxygen Delivery Method Room Air Intake Visit Reasons: Pituitary Adenoma Intake Note: Patient present today for Pituitary Adenoma follow up. Dining Room Cashier Required: Yes Dining Room Cashier Language: Puppy Walker Services: Dining Room Cashier Offered & Declined Accompanied by: Self / Same As Patient Allergies No Known Allergies [No Known Allergies*] Allergy (Verified 01/14/25 11:38) HPI Comments Details: This is a 31-year-old male found to have a Rathle's cleft cyst he underwent a transsphenoidal resection by Dr. Bonilla at [facility] on 10/07/22 . He was discharged on 5 mg of prednisone but this was stopped by Dr. Chung. No wt loss or sx of adrenal insufficency. Saw Dr. Bonilla . No problems with libido . C/O occasional head pressure but recent MRI showed no residual or recurrent mass. 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 major depression, single episode Abnormal TSH Pituitary mass Daytime somnolence Family history of hypertension Alcoholism Anxiety Anxiety Surgical History Status post selective transsphenoidal pituitary adenomectomy History of pituitary surgery Family History Mother Thyroid disease Father Diabetes Hypertension Neuropathy Social History Household Members: Significant Other Household Members Other:: SO and her two children Housing: Apartment Do you presently have visiting nurse or other home services: No Alcohol intake: former Patient Tobacco Use Status: Current everyday Tobacco user Tobacco use type: Cigarette Cigarettes Per Day: 8 Years Smoked: 14 e-Cigarette/Vaping Use: Never Used Second Hand Smoke Exposure: Yes service: No Current occupational status: unemployed Sexual orientation: Straight/Heterosexual Cognitive needs: No Hearing needs: No Vision needs: No Physical Exam Vital Signs: Last Vital Signs Pulse 100 01/14/25 11:37 BP 104/72 01/14/25 11:37 Pulse Ox 97 01/14/25 11:37 Oxygen Delivery Method Room Air 01/14/25 11:37 BMI result Body Mass Index 23.5 Assessment & Plan Assessment & Plan (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 MRI shows no evidence of persistence or recurrence of mass. Pituitary axis has been normal At this point, patient returned to the care of his primary care provider returned back to endocrinology as needed Coding Level of Care Code Est Pt Level 3 (56450) Diagnoses Pituitary macroadenoma D35.2
[2025-01-14 11:37] VITALS: BP 104/72; PULSE 100; O2SAT 97; BMI 23.5
== END 2025-01-14 12:05 | disposition home or self-care (01) ==
PROVIDERS: PCP Internal Medicine; Visit Provider Internal Medicine Endocrinology, Diabetes & Metabolism
DX: D35.2 Benign neoplasm of pituitary gland (principal)
CPT/HCPCS: 99213

== ENCOUNTER → 2025-01-14 11:34 | Outpatient (BNVA) | payer OTHER, SELFPAY | PROVIDERS: PCP Internal Medicine; Visit Provider Internal Medicine Endocrinology, Diabetes & Metabolism | DX: D35.2 Benign neoplasm of pituitary gland (principal) | CPT/HCPCS: 99212 ==